=== PATIENT | female | born 1930 | race Hispanic/Latino ===

== ENCOUNTER 2016-12-29 20:26 | Inpatient (IN) | payer OTHER, MEDICARE ==
[2016-12-29 20:27] VITALS: BMI 29.5
[2016-12-29] MEDS ORDERED: Albuterol-Ipratrop 3 mg / 0.5 (3 ml) UD IH STA ×2 (20:40→22:27)
[2016-12-29 21:05] LABS: VENOUS BLOOD GAS BASE EXCESS -1.8 mmol/L (0.0-2.0); VENOUS BLOOD PH 7.38 (7.32-7.43)
[2016-12-29 21:16] LABS: HEMATOCRIT 36.6 % (36.0-48.0); MEAN CELL VOLUME 85.5 fL (80.0-105.0); MEAN CORPUSCULAR HGB CONC 33.9 g/dl (31.0-37.0); MEAN PLATELET VOLUME 9.7 fl (7.0-11.0); RED CELL DISTRIBUTION WIDTH 15.3 % (11.5-14.5); WHITE BLOOD COUNT 10.5 10^3/ul (4.5-11.0)
--- NOTE | 2016-12-29 21:16 | ED PDOC ---
Arrival/HPI - General Chief Complaint: Shortness Of Breath Time Seen by Provider: 12/29/16 20:29 Historian: Patient - History of Present Illness Narrative History of Present Illness (Text): 12/29/16 20:35 Sayda Ramirez is an 86 year old female, whose past medical history includes paroxysmal atrial fibrillation, mitral repair repair, pacemaker, hyperlipidemia , and depression, who presents to the Emergency department complaining of increasing shortness of breath over the past couple of days. Patient reports associated orthonea, occasional non-productive cough, and possible subjective fever. According to son, patient has also been experiencing occasional vague chest discomfort. Patient denies any chills, nausea, vomiting, diarrhea, urinary symptoms, back pain, neck pain, headache, dizziness, or any other complaints. Symptom Onset: Gradual Symptom Course: Unchanged Activities at Onset: Rest, Light Context: Home Past Medical History - Provider Review Nursing Documentation Reviewed: Yes - Infectious Disease Hx of Infectious Diseases: None - Reproductive Menopause: Yes - Cardiac Hx Cardiac Disorders: Yes (valve replacement) Hx Cardiac Arrhythmia: Yes Hx Hypertension: Yes (started new "bp pill" yesterday, name unknown) - Pulmonary Hx Pneumonia: Yes (11/2014) - Neurological Hx Neurological Disorder: No - HEENT Hx HEENT Disorder: No - Renal Hx Renal Disorder: No - Endocrine/Metabolic Hx Endocrine Disorders: No - Hematological/Oncological Other/Comment: blood [facility] 11/2014 - Integumentary Hx Dermatological Disorder: No - Musculoskeletal/Rheumatological Hx Unsteady Gait: Yes - Gastrointestinal Other/Comment: blood in stool - Genitourinary/Gynecological Hx Genitourinary Disorders: No - Psychiatric Hx Psychophysiologic Disorder: Yes Hx Substance Use: No - Surgical History Hx Valve Replacement: Yes Other/Comment: implanted pacemaker; colonoscopy, polypectomy - Anesthesia Hx Anesthesia: Yes Hx Anesthesia Reactions: No Hx Malignant Hyperthermia: No - Suicidal Assessment Feels Threatened In Home Enviroment: No Family/Social History - Physician Review Nursing Documentation Reviewed: Yes Family/Social History: No Known Family HX Smoking Status: Never Smoked Hx Alcohol Use: No Hx Substance Use: No Allergies/Home Meds Allergies/Adverse Reactions: Allergies No Known Allergies Allergy (Verified 12/29/16 20:33) Home Medications: Home Meds Medication Instructions Recorded Confirmed Aspirin [Aspir 81] 81 mg PO DAILY 03/05/13 12/29/16 Atorvastatin Calcium [Lipitor] 10 mg PO DAILY 03/05/13 12/29/16 Sertraline HCl [Sertraline] 100 mg PO DAILY 03/05/13 12/29/16 Cholecalciferol (Vitamin D3) 50,000 unit PO DAILY 01/09/16 12/29/16 [Vitamin D3] Donepezil HCl [Donepezil HCl] 10 mg PO DAILY 01/09/16 12/29/16 amLODIPine [Norvasc] 1 tab PO DAILY 12/29/16 12/29/16 Review of Systems - Physician Review All systems were reviewed & negative as marked: Yes - Review of Systems Constitutional: Normal. absent: Fevers Eyes: Normal ENT: Normal Respiratory: SOB, Cough Cardiovascular: Chest Pain, Orthopnea Gastrointestinal: Normal. absent: Abdominal Pain, Diarrhea, Nausea, Vomiting Genitourinary Female: Normal. absent: Dysuria, Frequency, Hematuria, Urine Output Changes Musculoskeletal: Normal. absent: Back Pain, Neck Pain Skin: Normal. absent: Rash Neurological: Normal. absent: Headache, Dizziness Endocrine: Normal Hemo/Lymphatic: Normal Psychiatric: Normal Physical Exam Vital Signs Reviewed: Yes Vital Signs Temp Pulse Resp BP Pulse Ox 12/30/16 00:00 65 18 122/59 L 93 L 12/29/16 23:18 146/68 12/29/16 22:27 64 18 148/68 93 L 12/29/16 20:30 99.3 F 89 24 90 L 12/29/16 20:27 22 Temperature: Afebrile Blood Pressure: Normal Pulse: Regular Respiratory Rate: Normal Appearance: Positive for: Well-Appearing, Non-Toxic, Comfortable Pain Distress: None Mental Status: Positive for: Alert and Oriented X 3 - Systems Exam Head: Present: Atraumatic, Normocephalic Pupils: Present: PERRL Extroacular Muscles: Present: EOMI Conjunctiva: Present: Normal Mouth: Present: Moist Mucous Membranes Neck: Present: Normal Range of Motion Respiratory/Chest: Present: Wheezes. No: Respiratory Distress, Accessory Muscle Use Cardiovascular: Present: Regular Rate and Rhythm, Normal S1, S2. No: Murmurs Abdomen: Present: Normal Bowel Sounds. No: Tenderness, Distention, Peritoneal Signs Back: Present: Normal Inspection Upper Extremity: Present: Normal Inspection. No: Cyanosis, Edema Lower Extremity: Present: Normal Inspection. No: Edema Neurological: Present: GCS=15, CN II-XII Intact, Speech Normal Skin: Present: Warm, Dry, Normal Color. No: Rashes Psychiatric: Present: Alert, Oriented x 3, Normal Insight, Normal Concentration Medical Decision Making ED Course and Treatment: 12/29/16 20:35 Impression: 86 year old female complaining of shortness of breath, orthopnea, and chest discomfort. Differential Diagnosis included but are not limited to: COPD vs. CHF Plan: -- EKG -- CXR -- Labs, cardiac enzymes, blood cultures -- Duoneb -- Reassess and disposition Prior Visits: Notes and results from previous visits were reviewed. On 01/09/2016, pt was seen in the Emergency department for chest pain, shortness of breath, headache, dizziness, and generalized weakness. Pt was admitted to the hospital for further evaluation. Progress Notes: Reviewed EKG, 100% paced rhythm at 68 bpm. 12/29/16 20:45 Reviewed radiology, CXR shows increased pulmonary vascular markings. 12/29/16 23:[address] Rutherford, who is aware and agrees with plan. Accepts pt in to her service. Pt will be admitted to Telemetry for COPD and CHF. Requests Dr. Berry on consult. - Lab Interpretations Lab Results: 12/29/16 20:40 12/29/16 21:25 Lab Results 12/29/16 21:25: Sodium 135, Chloride 103, Potassium 3.8, Carbon Dioxide 25, Anion Gap 11, BUN 14, Creatinine 0.6, Est GFR ( Amer) > 60, Est GFR (Non- Af Amer) > 60, Random Glucose 124 H, Calcium 9.3, Total Bilirubin 1.0, AST 28, ALT 27, Alkaline Phosphatase 104, Lactate Dehydrogenase 413, Total Creatine Kinase 48, Troponin I < 0.01, NT-Pro-B Natriuret Pep 1260 H, Total Protein 7.9, Albumin 4.3, Globulin 3.6, Albumin/Globulin Ratio 1.2 12/29/16 20:40: pO2 78 H, VBG pH 7.38, VBG pCO2 39.0 L, VBG HCO3 23.1, VBG Total CO2 24.3, VBG O2 Sat (Calc) 96.2 H, VBG Base Excess -1.8 L, VBG Potassium 5.3 H, Sodium 135.0, Chloride 104.0, Glucose 136 H, Lactate 1.4, FiO2 21.0, Venous Blood Potassium 5.3 H 12/29/16 20:40: WBC 10.5 D, RBC 4.28, Hgb 12.4, Hct 36.6, MCV 85.5, MCH 29.0, MCHC 33.9, RDW 15.3 H, Plt Count 254, MPV 9.7 12/29/16 20:40: PT 10.7, INR 0.99, APTT 28.2 I have reviewed the lab results: Yes - RAD Interpretation Radiology Orders: 12/29/16 20:37 CHEST PORTABLE [RAD] Stat Sales And Leasing Agent: ED Physician - EKG Interpretation EKG Interpretation (Text): EKG: Ordered, reviewed, and independently interpreted the EKG. Rate : 68 BPM Rhythm : 100% paced rhythm Comparison : No acute change from EKG on 01/09/2016. Interpreted by ED Physician: Yes Type: 12 lead EKG - Medication Orders Current Medication Orders: Amlodipine Besylate (Norvasc) 5 mg PO DAILY BISI Aspirin (Ecotrin) 81 mg PO DAILY BISI Atorvastatin Calcium (Lipitor) 10 mg PO DAILY BISI Donepezil HCl (Aricept) 10 mg PO HS BISI Furosemide (Lasix) 40 mg IVP DAILY BISI Levalbuterol HCl (Xopenex) 1.25 mg IH [id number] BISI Meclizine HCl (Antivert) 25 mg PO TID PRN PRN Reason: Dizziness Sertraline HCl (Zoloft) 100 mg PO DAILY BISI Discontinued Medications Albuterol/Ipratropium (Duoneb 3 Mg/0.5 Mg (3 Ml) Ud) 3 ml IH ONCE STA Stop: 12/29/16 20:41 Last Admin: 12/29/16 20:51 Dose: 3 ml Albuterol/Ipratropium (Duoneb 3 Mg/0.5 Mg (3 Ml) Ud) 3 ml IH ONCE STA Stop: 12/29/16 22:28 Last Admin: 12/29/16 23:19 Dose: 3 ml Furosemide (Lasix) 40 mg IVP ONCE ONE Stop: 12/29/16 22:31 Last Admin: 12/29/16 23:18 Dose: 40 mg Ceftriaxone Sodium (Rocephin 1 Gram Ivpb) 1 gm in 100 mls @ 200 mls/hr IV ONCE STA PRN Reason: Protocol Stop: 12/29/16 22:58 Last Admin: 12/29/16 23:17 Dose: 200 mls/hr Azithromycin (Zithromax 500mg In Ns) 500 mg in 250 mls @ 166.667 mls/hr IV STAT STA PRN Reason: Protocol Stop: 12/29/16 23:59 Last Admin: 12/30/16 00:43 Dose: 166.667 mls/hr Methylprednisolone (Solu-Medrol) 125 mg IVP ONCE ONE Stop: 12/29/16 22:29 Last Admin: 12/29/16 23:18 Dose: 125 mg - Jaydonibe Statement The provider has reviewed the documentation as recorded by the Ha Peña Provider Attestation: All medical record entries made by the Ha were at my direction and personally dictated by me. I have reviewed the chart and agree that the record accurately reflects my personal performance of the history, physical exam, medical decision making, and the department course for this patient. I have also personally directed, reviewed, and agree with the discharge instructions and disposition. Disposition/Present on Arrival - Present on Arrival Any Indicators Present on Arrival: No History of DVT/PE: No History of Uncontrolled Diabetes: No Urinary Catheter: No History of Decub. Ulcer: No History Surgical Site Infection Following: None - Disposition Have Diagnosis and Disposition been Completed?: Yes Diagnosis: CHF (congestive heart failure), COPD (chronic obstructive pulmonary disease) Disposition: HOSPITALIZED Disposition Time: 23:55 Condition: STABLE
[2016-12-29 21:33] LABS: INR 0.99 (0.93-1.08); PARTIAL THROMBOPLASTIN TIME 28.2 Seconds (23.7-30.8)
[2016-12-29 21:46] LABS: ALB/GLOB RATIO 1.2 (1.1-1.8); ALKALINE PHOSPHATASE 104 U/L (38-133); ALT/SGPT 27 U/L (7-56); AST/SGOT 28 U/L (15-39); BLOOD UREA NITROGEN 14 mg/dL (7-21); CALCIUM 9.3 mg/dL (8.4-10.5); CARBON DIOXIDE 25 mmol/L (21-33); GFR AFRICAN-AMERICAN > 60; GLUCOSE,RANDOM 124 mg/dL (70-110); POTASSIUM 3.8 mmol/L (3.6-5.0); SODIUM 135 mmol/L (132-148); TOTAL PROTEIN 7.9 g/dL (5.8-8.3)
[2016-12-29 21:55] LABS: CHLORIDE 103 mmol/L (98-107)
[2016-12-29 22:04] LABS: TROPONIN I < 0.01 ng/mL
[2016-12-29] MEDS ORDERED: cefTRIAXone 1 gm 1 GM/100 ML BAG IV STA (22:29)
[2016-12-29] MEDS ORDERED: Azithromycin 500MG/NS 250ml 500 MG/250 ML BAG IV STA (22:30)
[2016-12-30] MEDS: Levalbuterol 1.25 MG/3 ML Inhal Soln UD IH SCH ×3 (07:50→20:14)
[2016-12-30 08:01] LABS: ALB/GLOB RATIO 1.2 (1.1-1.8); ALKALINE PHOSPHATASE 88 U/L (38-133); ALT/SGPT 30 U/L (7-56); AST/SGOT 24 U/L (15-39); BILIRUBIN,TOTAL 0.9 mg/dL (0.2-1.3); BLOOD UREA NITROGEN 15 mg/dL (7-21); CALCIUM 9.1 mg/dL (8.4-10.5); CARBON DIOXIDE 25 mmol/L (21-33); CHLORIDE 106 mmol/L (98-107); CHOLESTEROL 158 mg/dL (130-200); GFR AFRICAN-AMERICAN > 60; GLUCOSE,RANDOM 238 mg/dL (70-110); POTASSIUM 3.8 mmol/L (3.6-5.0); SODIUM 138 mmol/L (132-148); TOTAL PROTEIN 7.6 g/dL (5.8-8.3)
[2016-12-30 08:08] LABS: FREE T4 1.06 ng/dL (0.78-2.19)
[2016-12-30 08:13] LABS: TROPONIN I < 0.01 ng/mL
[2016-12-30 08:22] LABS: THYROID STIMULATING HORMONE 0.75 mIU/mL (0.46-4.68)
--- NOTE | 2016-12-30 09:02 | RAD ---
HISTORY: Shortness of breath COMPARISON: 01/09/2016 FINDINGS: LUNGS: The lungs are clear. PLEURA: No significant pleural effusion identified, no pneumothorax apparent. CARDIOVASCULAR: There is mild cardiomegaly. OSSEOUS STRUCTURES: No significant abnormalities. VISUALIZED UPPER ABDOMEN: Normal. OTHER FINDINGS: None. IMPRESSION: No active pulmonary disease.
[2016-12-30] MEDS: Potassium Chloride 20 mEq ER Tab PO SCH (11:54)
--- NOTE | 2016-12-30 13:48 | CON ---
DATE: 12/30/2016 REASON FOR CONSULTATION AND FOLLOWUP: Shortness of breath, low-grade fever, history of mitral valve repair, history of permanent pacemaker. BRIEF CLINICAL HISTORY: This is an 86-year-old female with a past medical history significant for pa roxysmal atrial fibrillation, mitral valve repair, pacemaker, hypertension, hyperlipidemia. Came in the Emergency Room with complaining of feeling cough, dyspnea on exertion, shortness of breath on exe rtion and this morning the patient was feeling weak. In ER, patient was found to be temperature 99 a nd elevated BNP, so admitted. Admitting WBC is 10.5. The patient had a blood culture and started on IV Lasix. The patient denies any chest pain, shortness of breath, any palpitation. Daughter is at the bedside. Daughter is at the bedside. PAST HISTORY: Significant for sick sinus syndrome, as well as permanent pacemaker 03/08/2013; histor y of mitral valve repair. Status post cardiac catheterization, normal coronaries, mitral stenosis, m itral regurgitation, status post mitral valve repair. History of hypothyroidism, history of hyperten vini, hyperlipidemia. SOCIAL HISTORY: Denies any smoking. Denies any history of alcohol abuse. PREVIOUS CARDIAC WORKUP: As per patient, history of mitral valve replacement at [facility] . History of permanent pacemaker on 03/07/2013. Hypertension, hyperlipidemia. SOCIAL HISTORY: Denies any smoking. Denies any history of alcohol abuse. History of single chamber VVI pacemaker, was placed on 03/08/2013. History of paroxysmal atrial fibri llation, now patient is in normal sinus. REVIEW OF SYSTEMS: As per HPI. PHYSICAL EXAMINATION: As follows: VITAL SIGNS: Temperature afebrile, heart rate 64, blood pressure 104/52. HEENT: PERRLA, intact. NECK: Supple. No carotid bruits. No thyromegaly. CHEST: Clear to auscultation. HEART: S1, S2 regular. ABDOMEN: Soft. EXTREMITIES: Clubbing and cyanosis negative. BLOOD WORKUP: As follows: WBC ____, hemoglobin ____, hematocrit 36.6, platelet count 254. Chemistr y shows sodium 130, potassium ____, chloride 106, carbon dioxide 25, anion gap of 15, BUN 11, creatin ine 0.6. Troponin 0.01. Orthostatic hypotension was checked and found to be 103 on lying, sitting 1 15/85, standing 107/40. EKG shows V-paced rhythm, underlying normal sinus. Chest x-ray normal, does not show any acute CHF. IMPRESSION: Low grade fever, rule out congestive heart failure, rule out early pneumonia, history of permanent pacemaker, sick sinus syndrome, history of mitral valve replacement. RECOMMENDATION: We will continue gentle diuretics. Monitor electrolytes. WE will get the echo to a ssess LV function, possible ____ early bronchitis. Gentle diuretics. We will follow with you. Hist ory of paroxysmal, now patient is normal sinus. History of permanent pacemaker. We will look at the valve gradient by echo. Last time, patient had moderate mitral stenosis post-valve repair, also loo k at the aortic valve. We will follow with you. Thank you, Dr. Rutherford, for providing us the opportunity in taking care of the patient. Raul Berry MD cc: [id number] TT: 12/30/2016 13:47:44 Confirmation # [id number] Dictation # [id number] sn
--- NOTE | 2016-12-30 13:49 | CARD ---
APPROVED REPORT EKG Measurement Heart [id number] <Conclusion> Electronic ventricular pacemaker
--- NOTE | 2016-12-30 14:24 | CT ---
PROCEDURE: CT Chest without contrast HISTORY: sob COMPARISON: None. TECHNIQUE: Contiguous axial images were obtained through the chest without intravenous contrast enhancement. Sagittal and coronal reconstructions were performed. Radiation dose (DLP): 482 mGy-cm. This CT exam was performed using one or more of the following dose reduction techniques: Automated exposure control, adjustment of the mA and/or kV according to patient size, and/or use of iterative reconstruction technique. FINDINGS: LUNGS: Ground-glass interstitial infiltrates are seen in both upper lobes. There is a small area of focal consolidation in the anterior right upper lobe image 64 series 4. There is a small 5 mm nodule in the left upper lobe seen on image 38. A focal nodular infiltrate is seen in the right upper lobe posteriorly on image 29. MEDIASTINUM: Unremarkable thoracic aorta. No aneurysm. Normal sized heart. Main pulmonary artery unremarkable. No vascular congestion. No lymphadenopathy. PLEURA: No pleural fluid. No pneumothorax. BONES: Anterior osteophytes. No compression fractures UPPER ABDOMEN: Grossly unremarkable. OTHER FINDINGS: None. IMPRESSION: Bilateral interstitial infiltrates in the upper lobes with smaller areas of focal consolidation.
--- NOTE | 2016-12-30 14:34 | HP ---
The patient is an 86-year-old, known to me from office practice. According to son, she has not been feeling well for the last 2-3 days. She was increasingly shortness of breath. Denies any fever or c hills. No history of nausea. No chest pain. Did have some weakness and so because of increasing sh ortness of breath and given significant past extensive coronary artery and arrhythmia history, the so n decided to bring her to Emergency Room for further evaluation. Complained of scanty cough here and there, but mostly dry. She did have some chills, but there was no documented fever. PAST MEDICAL HISTORY: Significant for: 1. Mitral valve repair. 2. Status post pacemaker placement. 3. Hyperlipidemia. 4. History of depression. ALLERGIES: She is not allergic to any medications. MEDICATIONS AT HOME: She is on Aricept 10 mg daily, amlodipine 5 mg daily, sertraline 100 mg daily, atorvastatin 10 mg daily, aspirin 81 daily, Antivert 25 t.i.d. p.r.n. SOCIAL HISTORY: She is single, lives with her children, son who is very caring. No history of smoki ng or alcohol use. PHYSICAL EXAMINATION: GENERAL: The patient is awake and alert, able to communicate. VITAL SIGNS: She is afebrile, pulse 64, respirations 20, blood pressure 104/ . LUNGS: Bilateral fair airflow. HEART: S1, S2 audible. ABDOMEN: Soft, nontender, no rebound, no guarding. NEUROLOGIC: She is awake and alert, communicative. LABORATORY EXAMINATION: WBCs 10.5, hemoglobin 12.4, hematocrit 36, platelets of 254. PT 10.7, INR 0 .99. Chemistry: Sodium 138, potassium 3.8, chloride 106, CO2 25, BUN 15, creatinine 0.6, blood suga r of 238. LFTs are within normal limits. BNP 1260. Two sets of cardiac enzymes are negative. X-ray chest: No active pulmonary disease. ASSESSMENT: 1. Congestive heart failure with high BNP. 2. History of mitral valve replacement. 3. Hypertension. 4. Mild dementia. 5. Obesity. PLAN: Echocardiogram has been ordered. We will continue her on nebulizer treatment. She is on IV L asix. Out of bed to chair. We will monitor her electrolytes in a.m. If she remains stable, early d ischarge in a.m. Chang Rutherford MD cc: [phone] TT: 12/30/2016 14:33:29 en
[2016-12-31] MEDS: Levalbuterol 1.25 MG/3 ML Inhal Soln UD IH SCH ×4 (01:26→19:33)
[2016-12-31 07:10] LABS: ADD MANUAL DIFF? NO
[2016-12-31 07:15] LABS: BASO # 0.01 K/mm3 (0.0-2.0); BASO % 0.1 % (0.0-3.0); GRAN # 11.48 (1.4-6.5); GRAN % 84.3 % (50.0-68.0); HEMATOCRIT 36.4 % (36.0-48.0); LYMPH # 1.3 (1.2-3.4); LYMPH % 9.5 % (22.0-35.0); MEAN CELL VOLUME 87.9 fL (80.0-105.0); MEAN CORPUSCULAR HEMOGLOBIN 28.5 pg (25.0-35.0); MEAN CORPUSCULAR HGB CONC 32.4 g/dl (31.0-37.0); MEAN PLATELET VOLUME 9.5 fl (7.0-11.0); MONO # 0.8 (0.1-0.6); MONO % 6.1 % (1.0-6.0); PLATELET COUNT 254 10^3/uL (120.0-450.0); RED CELL DISTRIBUTION WIDTH 15.3 % (11.5-14.5); WHITE BLOOD COUNT 13.6 10^3/ul (4.5-11.0)
[2016-12-31 07:40] LABS: ALB/GLOB RATIO 1.1 (1.1-1.8); ALKALINE PHOSPHATASE 73 U/L (38-133); ALT/SGPT 28 U/L (7-56); AST/SGOT 23 U/L (15-39); BILIRUBIN,TOTAL 0.9 mg/dL (0.2-1.3); BLOOD UREA NITROGEN 22 mg/dL (7-21); CALCIUM 9.4 mg/dL (8.4-10.5); CARBON DIOXIDE 27 mmol/L (21-33); CHLORIDE 107 mmol/L (98-107); GFR AFRICAN-AMERICAN > 60; GLUCOSE,RANDOM 132 mg/dL (70-110); MAGNESIUM 2.4 mg/dL (1.7-2.2); PHOSPHOROUS 3.4 mg/dL (2.5-4.5); POTASSIUM 3.9 mmol/L (3.6-5.0); SODIUM 143 mmol/L (132-148); TOTAL PROTEIN 7.2 g/dL (5.8-8.3)
[2016-12-31] MEDS: Potassium Chloride 20 mEq ER Tab PO SCH (09:05)
--- NOTE | 2016-12-31 10:43 | PN ---
DATE: 12/31/2016 REASON FOR CONSULTATION AND FOLLOWUP: Shortness of breath, low-grade fever, history of mitral valve repair, history of permanent pacemaker. BRIEF CLINICAL HISTORY: An 86-year-old female with a past medical history significant for paroxysmal atrial fibrillation, mitral valve repair, status post permanent pacemaker, history of mitral valve r epair, came to the Emergency Room not feeling good, feeling weak, low grade fever. The patient was s tarted on IV Lasix, on antibiotic, possibly acute bronchitis. The patient's repeat echo this morning reviewed at the bedside, preserved left ventricular function, valve area of 1.2 cm, status post mitr al valve repair, mild to moderate tricuspid regurgitation. No vegetation noted. PHYSICAL EXAMINATION: VITAL SIGNS: Temperature afebrile, heart rate 64, blood pressure 147/73. HEENT: PERRLA. Extraocular muscles intact. NECK: Supple. No carotid bruits. No thyromegaly. CHEST: Clear to auscultation. HEART: S1, S2 regular. ABDOMEN: Soft. EXTREMITIES: Clubbing and cyanosis negative. LABORATORY DATA: Blood workup as follows: WBC 13.6, hemoglobin 11.8, hematocrit 36.4, platelet coun t 254. Chemistry shows sodium 143, potassium 3.9, chloride 107, carbon dioxide 27, anion gap of 13, BUN 28, creatinine 0.6. IMPRESSION: Acute bronchitis, upper respiratory tract infection, decompensated congestive heart fail ure, status post mitral valve repair, valve area repeat echo today 1.2 cm2, preserved left ventricula r function, ejection fraction 65%, elevated BNP secondary to diastolic dysfunction, congestive heart failure secondary to diastolic dysfunction, acute bronchitis, status post permanent pacemaker, paroxy smal atrial fibrillation, now patient is in normal sinus with V-paced rhythm. RECOMMENDATION: Continue antibiotic. Continue aspirin. Continue Lasix. Continue atorvastatin. Po ssible discharge. Will discontinue telemetry. Discussed with the family, discussed with the manolo r, son and landlord named Jones, on the telephone. We will follow with you. We will follow up on dis charge in the office. Thank you, Dr. Rutherford, for providing the opportunity in taking care of this patient. We will follow with you. Raul Berry MD cc: [id number] TT: 12/31/2016 10:42:42 Confirmation # [id number] Dictation # [id number] rn
[2016-12-31] MEDS ORDERED: cefTRIAXone 1 gm 100 ML IVPB SCH (11:45)
[2016-12-31] MEDS ORDERED: cefTRIAXone 1 gm 1 GM/100 ML BAG IVPB ONE (12:00)
[2016-12-31] MEDS: Azithromycin 500MG/NS 250ml 500 MG/250 ML BAG IVPB SCH (12:30)
[2016-12-31 12:43] LABS: HEMATOCRIT 37.6 % (36.0-48.0); MEAN CELL VOLUME 87.9 fL (80.0-105.0); MEAN PLATELET VOLUME 9.2 fl (7.0-11.0); RED CELL DISTRIBUTION WIDTH 15.4 % (11.5-14.5); WHITE BLOOD COUNT 13.6 10^3/ul (4.5-11.0)
--- NOTE | 2016-12-31 13:45 | PN ---
DATE: 12/31/2016 The patient is an 86-year-old, seen and examined. Still has shortness of breath, but better than betorri ore. Gets short of breath on walking, does desaturate. At rest, pulse ox is 96% and ambulating, she is 92%. The patient had pneumonia when she was in [place]. She was on vent, so I would rather give her IV antibiotic for another 48 hours prior to discharge, so she is hemodynamically stable. I will discontinue telemetry and continue her on IV antibiotic. PHYSICAL EXAMINATION: GENERAL: Today, she is awake and alert. Complained of mild shortness of breath. VITAL SIGNS: She is afebrile, pulse 68, respirations 18, blood pressure 103/66. LUNGS: Bilateral fair airflow, few soft crackles in posterior upper and middle lung region. HEART: S1, S2 audible. ABDOMEN: Soft, nontender, no rebound, no guarding. NEUROLOGIC: She is awake and alert, able to communicate and ambulatory. LABORATORY EXAMINATION: WBC 13.6, hemoglobin 12.4, hematocrit 37.6, platelets 266. Chemistry: Sodi um 143, potassium 3.9, chloride 107, CO2 27, BUN 22, creatinine 0.6, blood sugar 132. Magnesium 2.4. Blood cultures are negative. She had CT scan of the chest done that shows bilateral interstitial infiltrate in both upper lung reg ions. ASSESSMENT: 1. Bilateral interstitial infiltrates, community-acquired pneumonia. 2. Asthmatic bronchitis. 3. Congestive heart failure, improved, acute on chronic systolic. 4. Status post mitral valve replacement. 5. History of depression. 6. Status post pacemaker placement. 7. Paroxysmal atrial fibrillation, but in sinus rhythm lately. PLAN: I will start her on Zithromax, Rocephin stat. I will order for procalcitonin for tomorrow and order for CBC. Start her on nebulizer treatment. Encouraged ambulation, out of bed to chair. Cont inue her usual cardiac medications. Follow up her CMP in a.m. Discussed with patient's daughter, makeda o is by the bedside. They agree for the plan. I will discontinue telemetry also. Chang Rutherford MD cc: [id number] TT: 12/31/2016 13:44:55 Confirmation # [id number] Dictation # [id number] en
[2016-12-31] MEDS ORDERED: Simethicone 80 mg Chewtab PO PRN (20:30)
[2016-12-31] MEDS: Pantoprazole 40 mg EC Tab PO SCH (20:50)
[2017-01-01] MEDS: Levalbuterol 1.25 MG/3 ML Inhal Soln UD IH SCH ×4 (01:20→21:12)
[2017-01-01] MEDS: Pantoprazole 40 mg EC Tab PO SCH (06:22)
[2017-01-01] MEDS: Potassium Chloride 20 mEq ER Tab PO SCH (08:47)
[2017-01-01 09:10] LABS: ALB/GLOB RATIO 1.1 (1.1-1.8); ALKALINE PHOSPHATASE 84 U/L (38-133); ALT/SGPT 30 U/L (7-56); AST/SGOT 35 U/L (15-39); BILIRUBIN,TOTAL 0.9 mg/dL (0.2-1.3); BLOOD UREA NITROGEN 22 mg/dL (7-21); CALCIUM 9.2 mg/dL (8.4-10.5); CARBON DIOXIDE 26 mmol/L (21-33); CHLORIDE 106 mmol/L (98-107); GFR AFRICAN-AMERICAN > 60; GLUCOSE,RANDOM 112 mg/dL (70-110); POTASSIUM 3.8 mmol/L (3.6-5.0); SODIUM 141 mmol/L (132-148); TOTAL PROTEIN 7.4 g/dL (5.8-8.3)
[2017-01-01] MEDS: Azithromycin 500MG/NS 250ml 500 MG/250 ML BAG IVPB SCH (09:38)
[2017-01-01] MEDS: cefTRIAXone 1 gm 1 GM/100 ML BAG IVPB SCH (09:38)
[2017-01-01 11:41] LABS: HEMATOCRIT 39.1 % (36.0-48.0); MEAN CELL VOLUME 88.1 fL (80.0-105.0); MEAN CORPUSCULAR HEMOGLOBIN 29.1 pg (25.0-35.0); RED CELL DISTRIBUTION WIDTH 15.3 % (11.5-14.5); WHITE BLOOD COUNT 10.7 10^3/ul (4.5-11.0)
--- NOTE | 2017-01-01 12:57 | PN ---
DATE: 01/01/2017 SUBJECTIVE: The patient is an 86-year-old, seen and examined lying in bed. Seems to be comfortable. Has scanty cough here and there. Eating and tolerating. Daughter by the bedside. PHYSICAL EXAMINATION: VITAL SIGNS: She is afebrile, pulse 64, respirations 20, blood pressure 144/75. LUNGS: Bilateral fair airflow okay. No rhonchi. HEART: S1, S2 audible. ABDOMEN: Soft, nontender, no rebound, no guarding. NEUROLOGIC: She is awake and alert, communicative and moves all extremities. LABORATORY EXAMINATION: WBC is 10.7, hemoglobin 12, hematocrit 39, platelet of 274. Chemistry: Sod ium 141, potassium 3.8, chloride 106, CO2 of 26, BUN 22, creatinine 0.6, blood sugar 112. ASSESSMENT: 1. Bilateral upper lobe interstitial infiltrate. 2. Diastolic dysfunction and congestive heart failure, acute on chronic, diastolic. 3. History of mitral valve replacement. 4. History of anxiety disorder. 5. Hyperlipidemia. 6. Chronic vertigo. PLAN: Will continue patient on current antibiotic. Will continue her on nebulizer treatment. She i s on aspirin 81 daily. Continue her on Lasix and potassium. She is on statins. She is receiving Ro cephin and Zithromax. Will reevaluate patient in the a.m. If she continues to improve, will discharg e probably either tomorrow or day after. Chang Rutherford MD cc: [id number] TT: 01/01/2017 12:55:58 Confirmation # [id number] Dictation # [id number] kelsie
--- NOTE | 2017-01-01 15:15 | PN ---
DATE: 01/01/2017 REASON FOR CONSULTATION AND FOLLOWUP: Shortness of breath, low-grade fever, mitral valve repair, his tory of permanent pacemaker, admitted with shortness of breath, possibly secondary to pneumonia. BRIEF CLINICAL HISTORY: The patient denies any chest pain, shortness of breath, any palpitations, fe els better. Son and daughter are at the bedside. PHYSICAL EXAMINATION: VITAL SIGNS: Temperature afebrile, heart rate 64, blood pressure 144/75. HEENT: PERRLA. Extraocular muscles intact. NECK: Supple. No carotid bruit. No thyromegaly. CHEST: Clear to auscultation. HEART: S1, S2 regular. ABDOMEN: Soft. EXTREMITIES: Clubbing and cyanosis negative. BLOOD WORKUP: As follows: WBC 10.3, hemoglobin 12.9, hematocrit 39.1, platelet count 274. Chemistr y shows sodium 141, potassium , chloride 106, carbon dioxide 26, anion gap of 13, BUN 22, creati nine 0.6. Troponin is 0.01 negative. Echo done that shows preserved left ventricular function, ejec tion fraction 60%-65%, status post MVR repair, mild to moderate mitral stenosis, status post MV repai r. IMPRESSION: Pneumonia, permanent pacemaker, diabetes, status post MV repair, paroxysmal atrial fibri llation, status post permanent pacemaker, sick sinus syndrome. RECOMMENDATION: Continue broad spectrum antibiotic. Discussed with the family's concern about the d ischarge. Told that patient needs IV antibiotic. The patient is improving. Probably once the sympt oms improve, patient will be discharged home. Discussed with the patient's family friend, Jones, and also the patient's son, but also explained the patient's condition. The patient is currently on IV a ntibiotics, Rocephin and Zithromax. We will follow with you. Thank you, Dr. Rutherford, for providing the opportunity in taking care of the patient. Raul Berry MD cc:Chang Rutherford MD 305 TT: 01/01/2017 15:14:25 Confirmation # [id number] Dictation # [id number] rn
[2017-01-02] MEDS: Levalbuterol 1.25 MG/3 ML Inhal Soln UD IH SCH ×3 (02:50→13:43)
[2017-01-02] MEDS: Pantoprazole 40 mg EC Tab PO SCH (06:08)
[2017-01-02] MEDS: Potassium Chloride 20 mEq ER Tab PO SCH (08:30)
[2017-01-02 08:43] VITALS: O2SAT 96
[2017-01-02] MEDS: Azithromycin 500MG/NS 250ml 500 MG/250 ML BAG IVPB SCH (10:23)
[2017-01-02] MEDS: cefTRIAXone 1 gm 1 GM/100 ML BAG IVPB SCH (10:23)
--- NOTE | 2017-01-02 12:17 | PN ---
DATE: 01/02/2017 SUBJECTIVE: The patient is 86 years old, seen and examined, lying in bed. Scanty cough, complained of generalized weakness. Eating and tolerating. PHYSICAL EXAMINATION: VITAL SIGNS: She is afebrile, pulse 6____, respirations 20, blood pressure 122/65. LUNGS: Bilateral few expiratory rhonchi. HEART: S1, S2 audible. ABDOMEN: Soft, nontender. No rebound, no guarding. NEUROLOGIC: The patient is awake and alert, able to communicate. Moves all extremities. ASSESSMENT: 1. Bilateral interstitial infiltrate that is community-acquired pneumonia. 2. Diastolic dysfunction. 3. Status post pacemaker placement secondary to sick sinus syndrome. 4. Mitral valve repair. 5. History of depression. PLAN: We will continue the patient's current antibiotic. We will continue her nebulizer treatment. Currently, she is on Rocephin and Zithromax. We will continue. We will monitor her respiratory sta tus. Encourage ambulation. Ordered for MEJIA stocking. If she remains stable, discharge plan for the morning. Chang Rutherford MD cc: [phone] TT: 01/02/2017 12:17:01 Confirmation # [id number] Dictation # [id number] patrick
[2017-01-02] MEDS ORDERED: Potassium Chloride 20 mEq ER Tab PO ONE (15:13)
--- NOTE | 2017-01-02 15:50 | PN ---
DATE: 01/02/2017 REASON FOR CONSULTATION AND FOLLOWUP: Cardiac followup, history of MV repair, history of MV repair, history of pacemaker, admitted with community-acquired pneumonia. The patient denies any chest pain, shortness of breath, any palpitation. PHYSICAL EXAMINATION: As follows: VITAL SIGNS: Temperature afebrile, heart rate 60, blood pressure 122/65. HEENT: PERRLA. Extraocular muscles intact. NECK: Supple. No carotid bruit or thyromegaly. CHEST: Clear to auscultation. HEART: S1, S2 regular. ABDOMEN: Soft. EXTREMITIES: Clubbing and cyanosis negative. BLOOD WORKUP: As follows: WBC 10.7, hemoglobin 12.9, hematocrit 39.1, platelet count 274. Chemistr y shows sodium 141, potassium ____, chloride 106, carbon dioxide 26, anion gap of 13, BUN 22, creatin ine 0.6. IMPRESSION: Pneumonia, community-acquired pneumonia. Status post mitral valve repair. Echo was don e -- preserved left ventricular function, aortic stenosis, mitral stenosis, valve area of 1.2, status post repair. Status post pacemaker, diastolic dysfunction. Diabetes. Cardiovascular status is sta ble. We will repeat chest x-ray, PA and lateral, this afternoon. Continue antibiotic. We will foll ow with you. Discussed with the patient's family. We discussed with the patient's son and daughter. We will follow with you. Raul Berry MD cc: [phone] TT: 01/02/2017 15:49:47 Confirmation # [id number] Dictation # [id number] sn
[2017-01-03] MEDS: Levalbuterol 1.25 MG/3 ML Inhal Soln UD IH SCH ×3 (02:00→13:25)
[2017-01-03 08:05] VITALS: BP 128/71; PULSE 68; RESP 20; TEMP 98.8
[2017-01-03] MEDS: Potassium Chloride 20 mEq ER Tab PO SCH (08:29)
--- NOTE | 2017-01-03 10:02 | RAD ---
HISTORY: F/U pneumonia and compare COMPARISON: 12/29/2016 TECHNIQUE: Chest PA and lateral FINDINGS: LUNGS: No active pulmonary disease. PLEURA: No significant pleural effusion identified. No pneumothorax apparent. CARDIOVASCULAR: Mild cardiomegaly. Single lead pacemaker OSSEOUS STRUCTURES: No significant abnormalities. VISUALIZED UPPER ABDOMEN: Normal. OTHER FINDINGS: None. IMPRESSION: No active disease.
[2017-01-03] MEDS: cefTRIAXone 1 gm 1 GM/100 ML BAG IVPB SCH (10:55)
[2017-01-03] MEDS: Azithromycin 500MG/NS 250ml 500 MG/250 ML BAG IVPB SCH (13:06)
--- NOTE | 2017-01-03 20:19 | PN ---
DATE: 01/03/2017 LOCATION: The patient is in room 578, bed 2. REASON FOR CONSULTATION AND FOLLOWUP: Mitral valve repair, history pacemaker, pneumonia. HISTORY OF PRESENT ILLNESS: The patient was admitted to the medical floor with community-acquired pn eumonia. The patient is feeling better now. Denies chest pain, shortness of breath, palpitation. PHYSICAL EXAMINATION: VITAL SIGNS: Blood pressure 128/71, respirations 20, pulse 68, temperature 98.8. HEAD: Normocephalic. EYES: Pupils normal. Conjunctivae normal. NOSE AND THROAT: Normal. NECK: JVP low. Carotid equal. THORAX: AP diameter normal. LUNGS: Clear. CARDIOVASCULAR: S1, S2. ABDOMEN: Soft, nontender, no organomegaly. Bowel sounds normal. EXTREMITIES: No clubbing, no cyanosis. LABORATORY DATA: WBC 10.7, hemoglobin 12.9, hematocrit 39.1, platelet 274. Sodium 141, potassium 3. 8, BUN 22, creatinine 0.6, random sugar 112. AST and ALT normal. Protein and albumin normal. DIAGNOSES: Community-acquired pneumonia, status post mitral valve repair, echo showed preserved left ventricular function, aortic stenosis, mitral stenosis, valve area 1.2 cm2, status post repair, stat us post pacemaker insertion, diastolic dysfunction, diabetes. PLAN: The patient had a repeat chest x-ray yesterday, which is clear. Will continue present therapy . The patient clinically cardiac status is stable. Aspirin 81 mg daily, potassium 20 mEq daily, fur osemide 40 mg IV daily, will change it to p.o.; atorvastatin 10 mg daily, Rocephin 1 gram IV daily, e rythromycin 500 mg IV daily, Zoloft 100 daily. Will discontinue IV Lasix and will put Lasix 40 p.o. daily and will follow with you. Raul Alvares MD cc: [phone] TT: 01/03/2017 20:18:17 Confirmation # [id number] Dictation # [id number] dn
--- NOTE | 2017-01-03 21:57 | DS ---
HISTORY OF PRESENT ILLNESS: The patient is an 86-year-old who came to Emergency Room because of incr easing cough, congestion, and shortness of breath. She was placed initially in observation, but, she was diuresed, she had CT scan of the chest done that showed bilateral interstitial infiltrate, has b een on IV antibiotic and nebulizers, doing well, anxious to go home. PHYSICAL EXAMINATION: VITAL SIGNS: She is afebrile, pulse , respirations 20, blood pressure 128/71. LUNGS: Bilateral fair airflow, no rhonchi or crackle. HEART: S1, S2 audible. ABDOMEN: Soft, nontender. No rebound, no guarding. NEUROLOGIC: The patient is awake and alert, able to communicate. LABORATORY EXAM: She had x-ray chest repeated that showed no active disease. ASSESSMENT AND PLAN: 1. Exertional dyspnea and bilateral interstitial infiltrate. 2. Status post mitral valve replacement. 3. History of depression. 4. Asthmatic bronchitis. 5. Status post pacemaker placement secondary to sick sinus syndrome. 6. Aortic stenosis. 7. Mitral stenosis. PLAN: The patient is anxious to go home. Although, she is clinically stable, discharge her on Zithr omax 250 daily for 7 days and Ceftin 500 twice a day. She is given a prescription for nebulizer. Sh luz is being discharged and will be followed up in office in a week and will reevaluate the patient as outpatient. Chang Rutherford MD cc: [phone] TT: 01/03/2017 21:56:58 ak
--- NOTE | 2017-01-07 11:39 | CARD ---
APPROVED REPORT EXAM: Two-dimensional and M-mode echocardiogram with Doppler and color Doppler. INDICATION Dyspnea s/p mv repair 2D DIMENSIONS Left Atrium (2D)4.3 (1.6-4.0cm)IVSd1.2 (0.7-1.1cm) LVDd3.9 (3.9-5.9cm)PWd1.1 (0.7-1.1cm) LVDs2.5 (2.5-4.0cm)FS (%) 35.0 % LVEF (%)65.0 (>50%) M-Mode DIMENSIONS Aortic Root3.00 (2.2-3.7cm)Aortic Cusp Exc.1.80 (1.5-2.0cm) Aortic Valve AoV Peak Wvrvmxxk463.0cm/Gee Peak GR.8mmHg Mitral Valve MV E Peak Gr.24mmHgMV E Mean Gr.9mmHgMV [id number] E/A ratio0.0MVA (PHT)1.16cm2 TDI E/Lateral E'0.0E/Medial E'0.0 Tricuspid Valve TR Peak [id number]/sRAP [id number] Peak Gr.30mmHg [id number] LEFT VENTRICLE The left ventricle is normal size. There is mild concentric left ventricular hypertrophy. The left ventricular function is normal.EF-65% There is normal LV segmental wall motion. The left ventricular diastolic function is normal. No left ventricle thrombus noted on this study. There is no ventricular septal defect visualized. There is no left ventricular aneurysm. There is no mass noted in the left ventricle. RIGHT VENTRICLE The right ventricle is normal size. There is normal right ventricular wall thickness. The right ventricular systolic function is normal. There is a pacemaker lead in the right ventricle. ATRIA The left atrium is mildly dilated. The right atrium is borderline dilated. There is a catheter/pacemaker lead seen in the right atrium. The interatrial septum is intact with no evidence for an atrial septal defect. AORTIC VALVE The aortic valve is thickened but opens well. There is trace aortic regurgitation. There is no aortic valvular stenosis. There is no aortic valvular vegetation. MITRAL VALVE S/p MV Repair, Trace MR. MVA 1.2 cm2 TRICUSPID VALVE The tricuspid valve leaflets are thickened , but open well. There is mild to moderate tricuspid regurgitation.RVSP-40 cmmof Hg. There is no tricuspid valve stenosis. There is no tricuspid valve prolapse or vegetation. PULMONIC VALVE The pulmonic valve is borderline thickened. There is trace pulmonic valvular regurgitation. GREAT VESSELS The aortic root is normal in size. The ascending aorta is normal in size. The pulmonary artery is normal. The IVC is normal in size and collapses >50% with inspiration. PERICARDIAL EFFUSION There is no pleural effusion. There is no pericardial effusion. <Conclusion> The left ventricle is normal size. There is mild concentric left ventricular hypertrophy. The left ventricular function is normal.EF-65% There is trace aortic regurgitation. S/p MV Repair, Trace MR. MVA 1.2 cm2 There is mild to moderate tricuspid regurgitation.RVSP-40 cmmof Hg. There is a pacemaker lead in the right ventricle.
== END 2017-01-03 18:55 | disposition home or self-care (01) | DRG 544 ==
LOC: ED 20:26 → ERH 23:51 → 2RNO 12-30 01:13 → 5RSO 12-31 15:45
PROVIDERS: ADMIT Internal Medicine; ATTEND Internal Medicine
PROC: 3E0F7GC Introduction of Other Therapeutic Substance into Respiratory Tract, Via Natural or Artificial Opening (ICD-10-PCS; principal; 2016-12-30)
DX: I11.0 Hypertensive heart disease with heart failure (principal); J18.9 Pneumonia, unspecified organism; I49.5 Sick sinus syndrome; F03.90 Unspecified dementia, unspecified severity, without behavioral disturbance, psychotic disturbance, mood disturbance, and anxiety; I48.0 Paroxysmal atrial fibrillation; E11.9 Type 2 diabetes mellitus without complications; I08.3 Combined rheumatic disorders of mitral, aortic and tricuspid valves; I50.33 Acute on chronic diastolic (congestive) heart failure; E78.5 Hyperlipidemia, unspecified; E03.9 Hypothyroidism, unspecified; F32.9 Major depressive disorder, single episode, unspecified; F41.9 Anxiety disorder, unspecified; R42 Dizziness and giddiness; E66.9 Obesity, unspecified; Z68.28 Body mass index [BMI] 28.0-28.9, adult; Z95.0 Presence of cardiac pacemaker; Z95.2 Presence of prosthetic heart valve; Z79.82 Long term (current) use of aspirin

== ENCOUNTER 2018-10-09 21:48 | Inpatient (IN) | payer MEDICARE, OTHER ==
[2018-10-09] MEDS: Sodium Chloride 0.9% 1,000 ML IV SCH (22:30)
[2018-10-09 22:33] LABS: BASO # 0.01 K/mm3 (0.0-2.0); BASO % 0.1 % (0.0-3.0); HEMOGLOBIN 12.9 g/dL (12.0-16.0); LYMPH # 1.3 (1.2-3.4); LYMPH % 13.3 % (22.0-35.0); MEAN CELL VOLUME 86.7 fl (80.0-105.0); MEAN CORPUSCULAR HEMOGLOBIN 28.2 pg (25.0-35.0); MEAN CORPUSCULAR HGB CONC 32.6 g/dl (31.0-37.0); MEAN PLATELET VOLUME 8.8 fl (7.0-11.0); MONO # 0.5 (0.1-0.6); MONO % 4.9 % (1.0-6.0); RBC 4.57 10^6/uL (3.5-6.1)
[2018-10-09 22:42] LABS: ALB/GLOB RATIO 1.3 (1.1-1.8); ALBUMIN 4.2 g/dL (3.0-4.8); ALT/SGPT 18 U/L (7-56); AST/SGOT 33 U/L (14-36); BLOOD UREA NITROGEN 24 mg/dL (7-21); CALCIUM 9.3 mg/dL (8.4-10.5); GFR NON-AFRICAN AMERICAN > 60; HDL CHOLESTEROL 38 mg/dL (29-60)
[2018-10-09 22:44] LABS: INR 1.08; PARTIAL THROMBOPLASTIN TIME 27.9 Seconds (26.9-38.3)
--- NOTE | 2018-10-09 22:49 | ED PDOC ---
Arrival/HPI - General Chief Complaint: Weakness/Neurological Deficit Time Seen by Provider: 10/09/18 21:49 - Critical Care Critical Care Minutes: 45 minutes - History of Present Illness Narrative History of Present Illness (Text): Patient presents with about 20-30 min history of L sided weakness and aphasia. According to family member, patient was normal at 2114. He went to take a shower, and at 2119 he noted that the patient was "acting weird" and "not speaking right". She has no history of CVA. Has cardiac history including mitral stenosis and pacemaker. Takes ASA but no other anticoagulants. Patient unable to provide any more information as she is aphasic. Family notes no apparent pain, fever, shortness of breath, or any other symptoms. Past Medical History - Provider Review Nursing Documentation Reviewed: Yes FORTUNATO Report Viewed: Yes - Travel History Have you recently traveled outside [place] w/in the past 3 mons?: No - Infectious Disease Hx of Infectious Diseases: None - Cardiac Hx Cardiac Disorders: Yes Hx Hypertension: Yes - Pulmonary Hx Pneumonia: Yes (11/2014) - Neurological Hx Neurological Disorder: No - HEENT Hx HEENT Disorder: No - Renal Hx Renal Disorder: No - Endocrine/Metabolic Hx Endocrine Disorders: No - Hematological/Oncological Other/Comment: blood infection last year in equador r hand 11/2014 - Integumentary Hx Dermatological Disorder: No - Musculoskeletal/Rheumatological Hx Unsteady Gait: Yes - Gastrointestinal Other/Comment: blood in stool - Genitourinary/Gynecological Hx Genitourinary Disorders: No - Psychiatric Hx Psychophysiologic Disorder: Yes Hx Substance Use: No - Surgical History Hx Valve Replacement: Yes Other/Comment: implanted pacemaker; colonoscopy, polypectomy - Anesthesia Hx Anesthesia: Yes Hx Anesthesia Reactions: No Hx Malignant Hyperthermia: No - Suicidal Assessment Feels Threatened In Home Enviroment: No Family/Social History Family/Social History: Unknown Family HX Smoking Status: Never Smoked Hx Alcohol Use: No Hx Substance Use: No Allergies/Home Meds Allergies/Adverse Reactions: Allergies No Known Allergies Allergy (Verified 10/09/18 21:50) Home Medications: Home Meds Medication Instructions Recorded Confirmed Aspirin [Aspir 81] 81 mg PO DAILY 03/05/13 10/09/18 Atorvastatin Calcium [Lipitor] 10 mg PO DAILY 03/05/13 10/09/18 Sertraline HCl 100 mg PO DAILY 03/05/13 10/09/18 Cholecalciferol (Vitamin D3) 50,000 unit PO DAILY 01/09/16 10/09/18 [Vitamin D3] Donepezil HCl 10 mg PO DAILY 01/09/16 10/09/18 amLODIPine [Norvasc] 1 tab PO DAILY 12/29/16 10/09/18 Review of Systems - Review of Systems Systems not reviewed;Unavailable: Other (Aphasia) Physical Exam Vital Signs Reviewed: Yes Temperature: Afebrile Blood Pressure: Normal Pulse: Regular Respiratory Rate: Normal Appearance: Positive for: Non-Toxic Mental Status: Positive for: other (Aphasic, unable to assess. Does not answer questions, but follows commands.) Finger Stick Blood Glucose: 164 - Systems Exam Head: Present: Atraumatic, Normocephalic Pupils: Present: PERRL Extroacular Muscles: Present: Gaze Palsy (Patient looking to right, with L neglect to confrontation) Conjunctiva: Present: Normal Mouth: Present: Moist Mucous Membranes Respiratory/Chest: Present: Clear to Auscultation Cardiovascular: Present: Regular Rate and Rhythm Abdomen: No: Tenderness, Rebound, Guarding Upper Extremity: Present: NORMAL PULSES, Capillary Refill < 2s. No: Edema, Tenderness, Temperature Abnormalties, Deformity Lower Extremity: Present: NORMAL PULSES, Capillary Refill < 2 s. No: Edema, Tenderness, Deformity, Temperature Abnormalties Neurological: No: Speech Normal (Aphasia), Motor Func Grossly Intact (Drift <10 seconds on LUE. Other extremities no drift with 5/5 strength) Skin: Present: Warm, Dry Medical Decision Making ED Course and Treatment: Patient evaluated upon arrival. Deficits include aphasia, R gaze palsy and L neglect, L arm weakness. Code stroke called. Patient immediately went to CT. Upon return from CT, L mouth droop noted. This is new since patient arrived. Other deficits still present. 10/09/18 22:05 CT Head, reviewed by radiologist: IMPRESSION: 1. There is generalized parenchymal atrophy noted as demonstrated by symmetrical dilatation of ventricles and sulci. 2. Chronic periventricular and subcortical microvascular disease is seen. 3. Diffuse skull thickening is again seen, nonspecific and can be idiopathic or related to condition such as Paget's, Fibrous dyspasia and metabolic diseases. 4. No acute intracranial pathology. No interval change. Electronically signed on Oct 09, 2018 10:18:01 PM EDT by: Bari Gan M.D., RUMA Certified By [facility] Fellowship Trained MRI and CT Specialist 10/09/18 22:[address] Slater. Recommends tPA, permissive hypertension with IV fluids and HOB down 30 degrees. EKG: Ordered, reviewed, and independently interpreted the EKG. Rate : 64 BPM Interpretation : paced rhythm, prolonged qtc, no concordant ST changes tPA bolus and infusion initiated at 2301. Case discussed with Dr. Rutherford, patient's PMD. Accepts admission to her service. Case discussed with Dr. Maradiaga for ICU admission. Patient went to CTA. No large clot burden noted on CTA imaging. - Lab Interpretations Lab Results: PT 12.0 SECONDS (9.4-12.5) 10/09/18 22:27 INR 1.08 10/09/18 22:27 APTT 27.9 Seconds (26.9-38.3) 10/09/18 22:27 Total Bilirubin 0.3 mg/dL (0.2-1.3) 10/09/18 22:27 AST 33 U/L (14-36) 10/09/18 22:27 ALT 18 U/L (7-56) 10/09/18 22:27 Alkaline Phosphatase 83 U/L (38-126) 10/09/18 22:27 Total Protein 7.3 g/dL (5.8-8.3) 10/09/18 22:27 Albumin 4.2 g/dL (3.0-4.8) 10/09/18 22:27 Globulin 3.1 gm/dL 10/09/18 22:27 Albumin/Globulin Ratio 1.3 (1.1-1.8) 10/09/18 22:27 - RAD Interpretation Radiology Orders: 10/09/18 21:55 HEAD W/O (CODE STROKE) [CT] Stat CHEST PORTABLE [RAD] Stat - Medication Orders Current Medication Orders: Alteplase, Recombinant (Activase 100 Mg Inj) 6 mg 0.09 mg/kg (6 mg) IV ONCE ONE Stop: 10/09/18 22:37 Alteplase, Recombinant (Activase 100 Mg Inj) 57 mg 0.81 mg/kg (57 mg) IV ONCE ONE Stop: 10/09/18 22:38 Sodium Chloride (Sodium Chloride 0.9%) 1,000 mls @ 100 mls/hr IV .Q10H BISI Last Admin: 10/09/18 22:30 Dose: 100 mls/hr eMAR Start Stop Document 10/09/18 22:30 RG (Rec: 10/09/18 22:47 RG [id number]) Intravenous Solution Start Date 10/09/18 Start Time 22:30 NIHSS Scale ([place]) Time Performed: 22:00 - How Severe is the Stoke Baseline Level of Consciousness: 0=Alert LOC to Questions: 2=Neither correct LOC to commands: 0=Obeys both correctly Best Gaze: 1=Partial gaze palsy Visual: 0=No visual loss Facial: 1=Minor asymmetry Motor Arm - Left: 1=Drift noted before 10 sec Motor Arm - Right: 0=No drift Motor Leg - Left: 0=No drift Motor Leg - Right: 0=No drift Limb Ataxia: 0=Absent Sensory: 0=Normal Best Language: 1=Mild to moderate aphasia Dysarthia: 1=Mild to moderate slurring Extinction & Inattention (Neglect): 1=Partial neglect (mild marc-attention) Score: 8 Risk Level: Mod Stroke Risk Disposition/Present on Arrival - Present on Arrival Any Indicators Present on Arrival: No History of DVT/PE: No History of Uncontrolled Diabetes: No Urinary Catheter: No History of Decub. Ulcer: No History Surgical Site Infection Following: None - Disposition Have Diagnosis and Disposition been Completed?: Yes Diagnosis: CVA (cerebral vascular accident) Disposition: HOSPITALIZED Disposition Time: 23:14 Condition: FAIR
[2018-10-09 22:52] LABS: LDL CHOLESTEROL 82 mg/dL (0-129)
[2018-10-09 22:55] LABS: TROPONIN I < 0.01 ng/mL
[2018-10-09] MEDS ORDERED: Sodium Chloride 0.9% 1,000 ML IV STA (23:16)
[2018-10-09] MEDS ORDERED: Iohexol 350 MG/100 ML VIAL ONE (23:21)
--- NOTE | 2018-10-10 00:24 | CP.PCM.CON ---
<Qamar Monsivais - Last Filed: 10/09/18 23:59> History of Present Illness - History of Present Illness History of Present Illness: ICU Consultation (Dr. Maradiaga's Service) CC: AMS/Dysarthria HPI: Mrs. Ramirez is a 88 year old female with a past medical history significant for mitral stenosis s/p mitral valve repair, permanent pacemaker for mitral regurgitation, paroxysmal atrial fibrillation, HTN, HLD and depression who presents with dysarthria and AMS. Patient is largely non-verbal during HPI and macedonian speaking only. Patients family is at bedside for HPI information. They report that the patient is normally independent with ADL's and has no difficulty with speaking. They last saw the patient at her baseline at approximately 2100 this evening. After this, the patient went to her room and was watching a movie on television in her bed when she suddenly started acting confused, thrashing her arms and progressively becoming more dysarthric. The patient became calmer since that time but is largely still confused and not at her baseline, according to patients family. They deny LOC, urinary/bowel incontinence, falls, tongue biting or seizure like activity. They deny this ever having happened in the past and this prompted them to bring the patient in for further evaluation. Of note, patient was recently seen by her PMD for a URI and was given antibiotics, prednisone, and an inhaler to use during the course of the antibiotics. Further ROS unobtainable at this time. While in the ED, patient was noted to have developed a left facial droop. The on-call neurologist was notified of this and patient was administered tPA. 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 Berry Review of Systems - Review of Systems Systems not reviewed;Unavailable: Altered Mental Status Past Patient History - Infectious Disease Hx of Infectious Diseases: None - Past Social History Smoking Status: Never Smoked - CARDIAC Hx Cardiac Disorders: Yes Hx Hypertension: Yes - PULMONARY Hx Pneumonia: Yes (11/2014) - NEUROLOGICAL Hx Neurological Disorder: No - HEENT Hx HEENT Problems: No - RENAL Hx Chronic Kidney Disease: No - ENDOCRINE/METABOLIC Hx Endocrine Disorders: No - HEMATOLOGICAL/ONCOLOGICAL Other/Comment: blood infection last year in [place] 11/2014 - INTEGUMENTARY Hx Dermatological Problems: No - MUSCULOSKELETAL/RHEUMATOLOGICAL Hx Unsteady Gait: Yes - GASTROINTESTINAL Other/Comment: blood in stool - GENITOURINARY/GYNECOLOGICAL Hx Genitourinary Disorders: No - PSYCHIATRIC Hx Psychophysiologic Disorder: Yes Hx Substance Use: No - SURGICAL HISTORY Hx Valve Replacement: Yes Other/Comment: implanted pacemaker; colonoscopy, polypectomy - ANESTHESIA Hx Anesthesia: Yes Hx Anesthesia Reactions: No Hx Malignant Hyperthermia: No Meds Allergies/Adverse Reactions: Allergies Allergy/AdvReac Type Severity Reaction Status Date / Time No Known Allergies Allergy Verified 10/09/18 21:50 - Medications Medications: Current Medications Sodium Chloride (Sodium Chloride 0.9%) 1,000 mls @ 100 mls/hr IV .Q10H BISI Last Admin: 10/09/18 22:30 Dose: 100 mls/hr Sodium Chloride (Sodium Chloride 0.9%) 1,000 mls @ 999 mls/hr IV .Q1H1M STA Stop: 10/10/18 00:16 Last Admin: 10/09/18 23:45 Dose: 999 mls/hr Physical Exam - Constitutional Appears: Non-toxic, No Acute Distress - Head Exam Head Exam: ATRAUMATIC, NORMOCEPHALIC - Eye Exam Eye Exam: EOMI, Normal appearance, PERRL. absent: Conjunctival injection, Nystagmus, Scleral icterus Pupil Exam: NORMAL ACCOMODATION. absent: Fixed, Irregular, Miosis, Mydriatic, Unequal - ENT Exam ENT Exam: Mucous Membranes Moist - Neck Exam Neck exam: Positive for: Full Rom - Respiratory Exam Respiratory Exam: Clear to Auscultation Bilateral, NORMAL BREATHING PATTERN. absent: Rales, Rhonchi, Wheezes, Respiratory Distress - Cardiovascular Exam Cardiovascular Exam: REGULAR RHYTHM, RRR, +S1, +S2 - GI/Abdominal Exam GI & Abdominal Exam: Normal Bowel Sounds, Soft. absent: Tenderness - Extremities Exam Extremities exam: Positive for: normal inspection. Negative for: calf tenderness, pedal edema - Expanded Neurological Exam Expanded Speech: Garbled Speech Cranial nerves: EOM's Intact: Normal, Nystagmus: Normal Upper motor neuron: Pronator Drift: Normal Sensory exam: Lower Extremity Light Touch: Normal, Upper Extremity Light Touch: Normal Neuro motor strength exam: Left Upper Extremity: 4, Right Upper Extremity: 4, Left Lower Extremity: 3, Right Lower Extremity: 4 Coma Scale Eye Opening: SPONTANEOUS Coma Scale Motor Response: OBEYS COMMANDS Coma Scale Verbal: Confused Coma Scale Total: 14 - Skin Skin Exam: Dry, Warm Results - Vital Signs Recent Vital Signs: Last Vital Signs Temp Pulse 60 10/09/18 23:17 Resp 18 10/09/18 23:17 BP 123/70 10/09/18 23:17 Pulse Ox 97 10/09/18 23:17 - Labs Result Diagrams: 10/09/18 22:27 10/09/18 22:27 Labs: Laboratory Results - last 24 hr 10/09/18 10/09/18 10/09/18 22:27 22:27 22:27 WBC 10.0 RBC 4.57 Hgb 12.9 Hct 39.6 MCV 86.7 MCH 28.2 MCHC 32.6 RDW 15.0 H Plt Count 247 MPV 8.8 Neut % (Auto) 81.7 H Lymph % (Auto) 13.3 L [place] % (Auto) 4.9 Eos % (Auto) 0.0 L Baso % (Auto) 0.1 Lymph # (Auto) 1.3 [place] # (Auto) 0.5 Eos # (Auto) 0.0 Baso # (Auto) 0.01 Absolute Neuts (auto) 8.14 H PT 12.0 INR 1.08 APTT 27.9 Sodium 138 Potassium 3.7 Chloride 100 Carbon Dioxide 24 Anion Gap 17 BUN 24 H Creatinine 0.8 Est GFR ( Amer) > 60 Est GFR (Non-Af Amer) > 60 Random Glucose 184 H Calcium 9.3 Total Bilirubin 0.3 AST 33 ALT 18 Alkaline Phosphatase 83 Troponin I < 0.01 Total Protein 7.3 Albumin 4.2 Globulin 3.1 Albumin/Globulin Ratio 1.3 Triglycerides 159 Cholesterol 138 LDL Cholesterol Direct 82 HDL Cholesterol 38 BBK History Checked 10/09/18 22:52 WBC RBC Hgb Hct MCV MCH MCHC RDW Plt Count MPV Neut % (Auto) Lymph % (Auto) [place] % (Auto) Eos % (Auto) Baso % (Auto) Lymph # (Auto) [place] # (Auto) Eos # (Auto) Baso # (Auto) Absolute Neuts (auto) PT INR APTT Sodium Potassium Chloride Carbon Dioxide Anion Gap BUN Creatinine Est GFR ( Amer) Est GFR (Non-Af Amer) Random Glucose Calcium Total Bilirubin AST ALT Alkaline Phosphatase Troponin I Total Protein Albumin Globulin Albumin/Globulin Ratio Triglycerides Cholesterol LDL Cholesterol Direct HDL Cholesterol BBK History Checked No verified bt Assessment & Plan - Assessment and Plan (Free Text) Assessment: 88 year old female with a past medical history significant for mitral stenosis s/p mitral valve repair, permanent pacemaker for mitral regurgitation, paroxysmal atrial fibrillation, HTN, HLD and depression who presents with dysarthria and AMS. Plan: 1. 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 Patient seen and case discussed with attending, Dr. Maradiaga. Qamar Monsivais PGY2 - Date & Time Date: 10/10/18 Time: 00:25 <Maty Maradiaga - Last Filed: 10/10/18 04:51> Meds - Medications Medications: Current Medications Sodium Chloride (Sodium Chloride 0.9%) 1,000 mls @ 100 mls/hr IV .Q10H BISI Last Admin: 10/10/18 01:32 Dose: 100 mls/hr Pantoprazole Sodium (Protonix Inj) 40 mg IVP DAILY BISI Results - Vital Signs Recent Vital Signs: Last Vital Signs Temp 98 F 10/10/18 01:04 Pulse 81 10/10/18 03:06 Resp 24 10/10/18 03:06 BP 126/82 10/10/18 03:06 Pulse Ox 95 10/10/18 03:06 - Labs Result Diagrams: 10/09/18 22:27 10/09/18 22:27 Labs: Laboratory Results - last 24 hr 10/09/18 10/09/18 10/09/18 22:27 22:27 22:27 WBC 10.0 RBC 4.57 Hgb 12.9 Hct 39.6 MCV 86.7 MCH 28.2 MCHC 32.6 RDW 15.0 H Plt Count 247 MPV 8.8 Neut % (Auto) 81.7 H Lymph % (Auto) 13.3 L [place] % (Auto) 4.9 Eos % (Auto) 0.0 L Baso % (Auto) 0.1 Lymph # (Auto) 1.3 [place] # (Auto) 0.5 Eos # (Auto) 0.0 Baso # (Auto) 0.01 Absolute Neuts (auto) 8.14 H PT 12.0 INR 1.08 APTT 27.9 Sodium 138 Potassium 3.7 Chloride 100 Carbon Dioxide 24 Anion Gap 17 BUN 24 H Creatinine 0.8 Est GFR ( Amer) > 60 Est GFR (Non-Af Amer) > 60 Random Glucose 184 H Calcium 9.3 Total Bilirubin 0.3 AST 33 ALT 18 Alkaline Phosphatase 83 Troponin I < 0.01 Total Protein 7.3 Albumin 4.2 Globulin 3.1 Albumin/Globulin Ratio 1.3 Triglycerides 159 Cholesterol 138 LDL Cholesterol Direct 82 HDL Cholesterol 38 Blood Type Blood Type Confirm Antibody Screen BBK History Checked 10/09/18 10/10/18 22:52 00:13 WBC RBC Hgb Hct MCV MCH MCHC RDW Plt Count MPV Neut % (Auto) Lymph % (Auto) [place] % (Auto) Eos % (Auto) Baso % (Auto) Lymph # (Auto) [place] # (Auto) Eos # (Auto) Baso # (Auto) Absolute Neuts (auto) PT INR APTT Sodium Potassium Chloride Carbon Dioxide Anion Gap BUN Creatinine Est GFR ( Amer) Est GFR (Non-Af Amer) Random Glucose Calcium Total Bilirubin AST ALT Alkaline Phosphatase Troponin I Total Protein Albumin Globulin Albumin/Globulin Ratio Triglycerides Cholesterol LDL Cholesterol Direct HDL Cholesterol Blood Type O POSITIVE Blood Type Confirm O POSITIVE Antibody Screen Negative BBK History Checked No verified bt Attending/Attestation - Attestation I have personally seen and examined this patient.: Yes I have fully participated in the care of the patient.: Yes I have reviewed all pertinent clinical information: Yes Notes (Text): 10/10/18 04:27 Patient was seen when she was in the ER in bed #1 . Medical record was reviewed. Agree with history, physical examination, assessment and plan.
[2018-10-10] MEDS: Sodium Chloride 0.9% 1,000 ML IV SCH (01:32)
[2018-10-10 01:57] VITALS: BMI 32.0
[2018-10-10] MEDS: Albuterol-Ipratrop 3 mg / 0.5 (3 ml) UD IH SCH ×3 (07:57→20:47)
--- NOTE | 2018-10-10 09:00 | CARD ---
APPROVED REPORT Date of service: 10/09/2018 EKG Measurement Heart [id number] <Conclusion> Electronic ventricular pacemaker
--- NOTE | 2018-10-10 11:57 | RAD ---
Date of service: 10/09/2018 HISTORY: Code Stroke COMPARISON: 01/02/2017 FINDINGS: LUNGS: No active pulmonary disease. Pulmonary vascular prominence accentuated by portable technique and poor inspiratory effort. PLEURA: No significant pleural effusion identified, no pneumothorax apparent. CARDIOVASCULAR: No atherosclerotic calcification present Cardiomegaly. No evidence of acute, significant cardiovascular disease. Position/ configuration of pacemaker Satisfactory. OSSEOUS STRUCTURES: No significant abnormalities. VISUALIZED UPPER ABDOMEN: Normal. OTHER FINDINGS: None. IMPRESSION: No active disease. No significant interval change compared to the prior examination(s).
--- NOTE | 2018-10-10 12:11 | CP.PCM.CON ---
History of Present Illness - History of Present Illness History of Present Illness: Neurology Consultation Note: Consult requested by Dr. Urvashi River Mrs. Ramirez is an 88-year-old woman with a past medical history of mitral stenosis s/p mitral valve repair, permanent pacemaker for mitral regurgitation, paroxysmal atrial fibrillation, HTN, HLD and depression who was last normal last night at 9 PM, and developed left side weakness and aphasia last night. She presented to the ED about 35 minutes after symptom onset. CT scan of the head did not show any bleed. I spoke with Dr. River and recommended IV tPA. She was a candidate for IV tPA and received the infusion with drip and transferred to the ICU. Today, the patient is moving all extremities well and much more verbal. Review of Systems - Review of Systems Systems not reviewed;Unavailable: Other Past Patient History - Infectious Disease Hx of Infectious Diseases: None - Past Social History Smoking Status: Never Smoked - CARDIAC Hx Cardiac Disorders: Yes Hx Hypertension: Yes - PULMONARY Hx Pneumonia: Yes - NEUROLOGICAL Hx Neurological Disorder: No - HEENT Hx HEENT Problems: No - RENAL Hx Chronic Kidney Disease: No - ENDOCRINE/METABOLIC Hx Endocrine Disorders: No - HEMATOLOGICAL/ONCOLOGICAL Other/Comment: blood infection last year in [facility] [place] 11/2014 - INTEGUMENTARY Hx Dermatological Problems: No - MUSCULOSKELETAL/RHEUMATOLOGICAL Hx Unsteady Gait: Yes - GASTROINTESTINAL Other/Comment: blood in stool - GENITOURINARY/GYNECOLOGICAL Hx Genitourinary Disorders: No - PSYCHIATRIC Hx Psychophysiologic Disorder: Yes Hx Substance Use: No - SURGICAL HISTORY Hx Valve Replacement: Yes Other/Comment: implanted pacemaker; colonoscopy, polypectomy - ANESTHESIA Hx Anesthesia: Yes Hx Anesthesia Reactions: No Hx Malignant Hyperthermia: No Meds Allergies/Adverse Reactions: Allergies Allergy/AdvReac Type Severity Reaction Status Date / Time No Known Allergies Allergy Verified 10/09/18 21:50 - Medications Medications: Current Medications Albuterol/Ipratropium (Duoneb 3 Mg/0.5 Mg (3 Ml) Ud) 3 ml IH [id number] BISI Last Admin: 10/10/18 07:57 Dose: 3 ml Aspirin (Aspirin Chewable) 81 mg PO DAILY BISI Atorvastatin Calcium (Lipitor) 20 mg PO DIN [facility] Sodium Chloride (Sodium Chloride 0.9%) 1,000 mls @ 100 mls/hr IV .Q10H BISI Last Admin: 10/10/18 01:32 Dose: 100 mls/hr Pantoprazole Sodium (Protonix Inj) 40 mg IVP DAILY BISI Last Admin: 10/10/18 10:16 Dose: 40 mg Physical Exam - Constitutional Appears: Well - Head Exam Head Exam: ATRAUMATIC, NORMAL INSPECTION, NORMOCEPHALIC - Eye Exam Eye Exam: EOMI, Normal appearance, PERRL Pupil Exam: NORMAL ACCOMODATION, PERRL - ENT Exam ENT Exam: Mucous Membranes Moist, Normal Exam - Neck Exam Neck exam: Positive for: Normal Inspection - Respiratory Exam Respiratory Exam: Clear to Auscultation Bilateral, NORMAL BREATHING PATTERN - Cardiovascular Exam Cardiovascular Exam: REGULAR RHYTHM, +S1, +S2 - GI/Abdominal Exam GI & Abdominal Exam: Normal Bowel Sounds, Soft. absent: Tenderness - Extremities Exam Extremities exam: Positive for: normal inspection - Back Exam Back exam: NORMAL INSPECTION - Neurological Exam Neurological exam: Abnormal Gait, Alert, CN II-XII Intact, Oriented x3, Reflexes Normal Additional comments: Dysarthric, not aphasic. Left facial droop, left slight pronator drift noted. Sensation is intact throughout. NIHSS = 4 - Psychiatric Exam Psychiatric exam: Normal Affect, Normal Mood - Skin Skin Exam: Dry, Intact, Normal Color, Warm Results - Vital Signs Recent Vital Signs: Last Vital Signs Temp 98 F 10/10/18 01:04 Pulse 64 10/10/18 10:20 Resp 43 H 10/10/18 10:20 BP 160/89 H 10/10/18 10:00 Pulse Ox 100 10/10/18 10:20 - Labs Result Diagrams: 10/09/18 22:27 10/09/18 22:27 Labs: Laboratory Results - last 24 hr 10/09/18 10/09/18 10/09/18 22:27 22:27 22:27 WBC 10.0 RBC 4.57 Hgb 12.9 Hct 39.6 MCV 86.7 MCH 28.2 MCHC 32.6 RDW 15.0 H Plt Count 247 MPV 8.8 Neut % (Auto) 81.7 H Lymph % (Auto) 13.3 L [place] % (Auto) 4.9 Eos % (Auto) 0.0 L Baso % (Auto) 0.1 Lymph # (Auto) 1.3 [place] # (Auto) 0.5 Eos # (Auto) 0.0 Baso # (Auto) 0.01 Absolute Neuts (auto) 8.14 H PT 12.0 INR 1.08 APTT 27.9 Sodium 138 Potassium 3.7 Chloride 100 Carbon Dioxide 24 Anion Gap 17 BUN 24 H Creatinine 0.8 Est GFR ( Amer) > 60 Est GFR (Non-Af Amer) > 60 Random Glucose 184 H Calcium 9.3 Total Bilirubin 0.3 AST 33 ALT 18 Alkaline Phosphatase 83 Troponin I < 0.01 Total Protein 7.3 Albumin 4.2 Globulin 3.1 Albumin/Globulin Ratio 1.3 Triglycerides 159 Cholesterol 138 LDL Cholesterol Direct 82 HDL Cholesterol 38 Blood Type Blood Type Confirm Antibody Screen BBK History Checked 10/09/18 10/10/18 22:52 00:13 WBC RBC Hgb Hct MCV MCH MCHC RDW Plt Count MPV Neut % (Auto) Lymph % (Auto) [place] % (Auto) Eos % (Auto) Baso % (Auto) Lymph # (Auto) [place] # (Auto) Eos # (Auto) Baso # (Auto) Absolute Neuts (auto) PT INR APTT Sodium Potassium Chloride Carbon Dioxide Anion Gap BUN Creatinine Est GFR ( Amer) Est GFR (Non-Af Amer) Random Glucose Calcium Total Bilirubin AST ALT Alkaline Phosphatase Troponin I Total Protein Albumin Globulin Albumin/Globulin Ratio Triglycerides Cholesterol LDL Cholesterol Direct HDL Cholesterol Blood Type O POSITIVE Blood Type Confirm O POSITIVE Antibody Screen Negative BBK History Checked No verified bt Assessment & Plan - Assessment and Plan (Free Text) Assessment: Ischemic stroke likely due to embolic etiology considering the history of atrial fibrillation and mitral valve replacement. She is unable to obtain MRI due to pacemaker. Plan: 1. Transfer out of ICU to telemetry 24 hours after tPA 2. Repeat non-contrast CT head tomorrow 3. Will consider starting the patient on Eliquis tomorrow depending on CT head results 4. PT/OT eval and treatment 5. Post-tPA blood pressure parameters 6. Echocardiogram 7. Lipid panel, HbA1c, B12, folate, TSH, Vitamin D level 8. Lipitor 40 mg daily 9. Case management consult Thank you for this consultation.
--- NOTE | 2018-10-10 12:26 | CP.CCUPN ---
<Jose Mcknight - Last Filed: 10/10/18 16:43> CCU Subjective - Physician Review Events Since Last Encounter (Free Text): 10/10/18 12:25 Pt recievd from ED with garbled speech, able to follow commands, minimal left sided weakness Subjective (Free Text): 10/10/18 12:30 Pt seen and examined this morning in the ICU. Pt has no new complaints at this time. Critical Care Time Spent (in minutes): 45 CCU Objective - Vital Signs / Intake & Output Vital Signs (Last 4 hours): Vital Signs Pulse Resp BP Pulse Ox 10/10/18 10:20 64 43 H 100 10/10/18 10:10 60 21 100 10/10/18 10:00 60 32 H 160/89 H 99 10/10/18 09:50 63 22 99 10/10/18 09:40 64 40 H 99 10/10/18 09:30 61 98 10/10/18 09:20 60 20 96 10/10/18 09:10 61 37 H 100 10/10/18 09:00 62 24 141/73 97 10/10/18 08:50 61 24 99 10/10/18 08:40 62 25 H 99 10/10/18 08:30 61 19 100 Intake and Output (Last 8hrs): Intake & Output 10/09/18 10/10/18 10/10/18 22:59 06:59 14:59 Intake Total 1500 Output Total 400 Balance 1100 Weight 155 lb 4 oz 143 lb 3.2 oz Intake: IV 1500 Left 1500 Oral 0 Output: Urine 400 Urethral (Aguilar) 400 Other: Voiding Method Bedpan # Bowel Movements 2 - Physical Exam Head: Positive for: Atraumatic, Normocephalic Pupils: Positive for: PERRL Extroacular Muscles: Positive for: Gaze Palsy (Patient looking to right, with L neglect to confrontation) Conjunctiva: Positive for: Normal Mouth: Positive for: Moist Mucous Membranes Respiratory/Chest: Positive for: Clear to Auscultation Cardiovascular: Positive for: Regular Rate and Rhythm Abdomen: Negative for: Tenderness, Rebound, Guarding Upper Extremity: Positive for: NORMAL PULSES, Capillary Refill < 2s. Negative for: Edema, Tenderness, Temperature Abnormalties, Deformity Lower Extremity: Positive for: NORMAL PULSES, Capillary Refill < 2 s. Negative for: Edema, Tenderness, Deformity, Temperature Abnormalties Neurological: Negative for: CN II-XII Intact, Speech Normal (Aphasia), Motor Func Grossly Intact (Drift <10 seconds on LUE. Other extremities no drift with 5/5 strength) Skin: Positive for: Warm, Dry Psychiatric: Positive for: Alert, Oriented x 3 - Medications Active Medications: Active Medications Generic Name Dose Route Start Last Admin Trade Name Freq PRN Reason Stop Dose Admin Albuterol/Ipratropium 3 ml 10/10/18 08:00 10/10/18 07:57 Duoneb 3 Mg/0.5 Mg (3 Ml) Ud IH 3 ml [id number] BISI Administration Aspirin 81 mg 10/10/18 12:00 Aspirin Chewable PO DAILY BISI Atorvastatin Calcium 20 mg 10/10/18 17:00 Lipitor PO DIN BISI Sodium Chloride 1,000 mls @ 100 mls/hr 10/09/18 22:00 10/10/18 01:32 Sodium Chloride 0.9% IV 100 mls/hr .Q10H BISI Administration Pantoprazole Sodium 40 mg 10/10/18 10:00 10/10/18 10:16 Protonix Inj IVP 40 mg DAILY BISI Administration - Patient Studies Lab Studies: Lab Studies 10/10/18 10/09/18 10/09/18 Range/Units 00:13 22:52 22:27 WBC (4.5-11.0) 10^3/uL RBC (3.5-6.1) 10^6/uL Hgb (12.0-16.0) g/dL Hct (36.0-48.0) % MCV (80.0-105.0) fl MCH (25.0-35.0) pg MCHC (31.0-37.0) g/dl RDW (11.5-14.5) % Plt Count (120.0-450.0) 10^3/uL MPV (7.0-11.0) fl Neut % (Auto) (50.0-68.0) % Lymph % (Auto) (22.0-35.0) % [place] % (Auto) (1.0-6.0) % Eos % (Auto) (1.5-5.0) % Baso % (Auto) (0.0-3.0) % Lymph # (Auto) (1.2-3.4) [place] # (Auto) (0.1-0.6) Eos # (Auto) (0.0-0.7) Baso # (Auto) (0.0-2.0) K/mm3 Absolute Neuts (auto) (1.4-6.5) PT (9.4-12.5) SECONDS INR APTT (26.9-38.3) Seconds Sodium 138 (132-148) mmol/L Potassium 3.7 (3.6-5.0) mmol/L Chloride 100 (98-107) mmol/L Carbon Dioxide 24 (21-33) mmol/L Anion Gap 17 (10-20) BUN 24 H (7-21) mg/dL Creatinine 0.8 (0.7-1.2) mg/dl Est GFR ( Amer) > 60 Est GFR (Non-Af Amer) > 60 Random Glucose 184 H (70-110) mg/dL Calcium 9.3 (8.4-10.5) mg/dL Total Bilirubin 0.3 (0.2-1.3) mg/dL AST 33 (14-36) U/L ALT 18 (7-56) U/L Alkaline Phosphatase 83 (38-126) U/L Troponin I < 0.01 ng/mL Total Protein 7.3 (5.8-8.3) g/dL Albumin 4.2 (3.0-4.8) g/dL Globulin 3.1 gm/dL Albumin/Globulin Ratio 1.3 (1.1-1.8) Triglycerides 159 (35-160) mg/dL Cholesterol 138 (130-200) mg/dL LDL Cholesterol Direct 82 (0-129) mg/dL HDL Cholesterol 38 (29-60) mg/dL Blood Type O POSITIVE Blood Type Confirm O POSITIVE Antibody Screen Negative BBK History Checked No verified bt 10/09/18 10/09/18 Range/Units 22:27 22:27 WBC 10.0 (4.5-11.0) 10^3/uL RBC 4.57 (3.5-6.1) 10^6/uL Hgb 12.9 (12.0-16.0) g/dL Hct 39.6 (36.0-48.0) % MCV 86.7 (80.0-105.0) fl MCH 28.2 (25.0-35.0) pg MCHC 32.6 (31.0-37.0) g/dl RDW 15.0 H (11.5-14.5) % Plt Count 247 (120.0-450.0) 10^3/uL MPV 8.8 (7.0-11.0) fl Neut % (Auto) 81.7 H (50.0-68.0) % Lymph % (Auto) 13.3 L (22.0-35.0) % [place] % (Auto) 4.9 (1.0-6.0) % Eos % (Auto) 0.0 L (1.5-5.0) % Baso % (Auto) 0.1 (0.0-3.0) % Lymph # (Auto) 1.3 (1.2-3.4) [place] # (Auto) 0.5 (0.1-0.6) Eos # (Auto) 0.0 (0.0-0.7) Baso # (Auto) 0.01 (0.0-2.0) K/mm3 Absolute Neuts (auto) 8.14 H (1.4-6.5) PT 12.0 (9.4-12.5) SECONDS INR 1.08 APTT 27.9 (26.9-38.3) Seconds Sodium (132-148) mmol/L Potassium (3.6-5.0) mmol/L Chloride (98-107) mmol/L Carbon Dioxide (21-33) mmol/L Anion Gap (10-20) BUN (7-21) mg/dL Creatinine (0.7-1.2) mg/dl Est GFR ( Amer) Est GFR (Non-Af Amer) Random Glucose (70-110) mg/dL Calcium (8.4-10.5) mg/dL Total Bilirubin (0.2-1.3) mg/dL AST (14-36) U/L ALT (7-56) U/L Alkaline Phosphatase (38-126) U/L Troponin I ng/mL Total Protein (5.8-8.3) g/dL Albumin (3.0-4.8) g/dL Globulin gm/dL Albumin/Globulin Ratio (1.1-1.8) Triglycerides (35-160) mg/dL Cholesterol (130-200) mg/dL LDL Cholesterol Direct (0-129) mg/dL HDL Cholesterol (29-60) mg/dL Blood Type Blood Type Confirm Antibody Screen BBK History Checked Laboratory Results - last 24 hr 10/09/18 10/09/18 10/09/18 22:27 22:27 22:27 WBC 10.0 RBC 4.57 Hgb 12.9 Hct 39.6 MCV 86.7 MCH 28.2 MCHC 32.6 RDW 15.0 H Plt Count 247 MPV 8.8 Neut % (Auto) 81.7 H Lymph % (Auto) 13.3 L [place] % (Auto) 4.9 Eos % (Auto) 0.0 L Baso % (Auto) 0.1 Lymph # (Auto) 1.3 [place] # (Auto) 0.5 Eos # (Auto) 0.0 Baso # (Auto) 0.01 Absolute Neuts (auto) 8.14 H PT 12.0 INR 1.08 APTT 27.9 Sodium 138 Potassium 3.7 Chloride 100 Carbon Dioxide 24 Anion Gap 17 BUN 24 H Creatinine 0.8 Est GFR ( Amer) > 60 Est GFR (Non-Af Amer) > 60 Random Glucose 184 H Calcium 9.3 Total Bilirubin 0.3 AST 33 ALT 18 Alkaline Phosphatase 83 Troponin I < 0.01 Total Protein 7.3 Albumin 4.2 Globulin 3.1 Albumin/Globulin Ratio 1.3 Triglycerides 159 Cholesterol 138 LDL Cholesterol Direct 82 HDL Cholesterol 38 Blood Type Blood Type Confirm Antibody Screen BBK History Checked 10/09/18 10/10/18 22:52 00:13 WBC RBC Hgb Hct MCV MCH MCHC RDW Plt Count MPV Neut % (Auto) Lymph % (Auto) [place] % (Auto) Eos % (Auto) Baso % (Auto) Lymph # (Auto) [place] # (Auto) Eos # (Auto) Baso # (Auto) Absolute Neuts (auto) PT INR APTT Sodium Potassium Chloride Carbon Dioxide Anion Gap BUN Creatinine Est GFR ( Amer) Est GFR (Non-Af Amer) Random Glucose Calcium Total Bilirubin AST ALT Alkaline Phosphatase Troponin I Total Protein Albumin Globulin Albumin/Globulin Ratio Triglycerides Cholesterol LDL Cholesterol Direct HDL Cholesterol Blood Type O POSITIVE Blood Type Confirm O POSITIVE Antibody Screen Negative BBK History Checked No verified bt Radiology Impressions: Radiology Impressions Chest X-Ray 10/09/18 21:55 IMPRESSION: No active disease. No significant interval change compared to the prior examination(s). EKG/Cardiology Studies: Cardiology / EKG Studies 10/09/18 21:55 ELECTROCARDIOGRAM Stat Comment: Reason For Exam: cva Fingerstick Blood Sugar Results: 164 Critical Care Progress Note - Nutrition Nutrition: Nutrition Category Date Time Status Heart Healthy Diet [DIET] Diets 10/10/18 Lunch Active Assessment/Plan - Assessment and Plan (Free Text) Assessment: Pt is a 88 yo female with a PMH of mitral stenosis s/p mitral valve repair, pacemaker for mitral regurgitation, paroxysmal atrial fibrillation, HTN, HLD and depression who presents with dysarthria and AMS. Plan: Neuro - CVA - Head CTA follow up - Head CT negative for bleed - Neuro consulted, Dr Slater transfer out of ICU to tele 24 hours after TPA. Repeat non-con CT head tomorrw. May start pt on Eliquis tomorrow. Rec ECHO, HA1C, B12, folate, TSH, vit D level. Start on Lipitor. Cadio - paroxysmal a fib - ASA - may start on Eliquis tomorrow, after CT head results and bleed ruled out - Maintain MAP >65 - Trop negative x1 - ECHO follow up - Cardio consulted, Dr Jamal Cotter - Maintain O2 sat >92 - duonebs GI - AST/ALT 33/18 - pantoprazole - HHD Heme - monitor H/H - Hgb 12.9 - INR 1.08 Nephro/ - BUN 24 - Cr 0.8 Endo - maintain euglycemia ID WBC 10.0 Pt seen, examined, assessment and plan discussed with Dr Heidy Mcknight PGY1 - Date & Time Date: 10/10/18 Time: 08:00 <Diogenes Scott - Last Filed: 10/10/18 18:02> CCU Objective - Vital Signs / Intake & Output Intake and Output (Last 8hrs): Intake & Output 10/10/18 10/10/18 10/10/18 06:59 14:59 22:59 Intake Total 1500 Output Total 400 Balance 1100 Weight 64.954 kg Intake: IV 1500 Left 1500 Oral 0 Output: Urine 400 Urethral (Aguilar) 400 Other: Voiding Method Bedpan # Bowel Movements 2 - Medications Active Medications: Active Medications Generic Name Dose Route Start Last Admin Trade Name Freq PRN Reason Stop Dose Admin Albuterol/Ipratropium 3 ml 10/10/18 08:00 10/10/18 13:01 Duoneb 3 Mg/0.5 Mg (3 Ml) Ud IH 3 ml [id number] BISI Administration Aspirin 81 mg 10/10/18 12:00 10/10/18 13:10 Aspirin Chewable PO 81 mg DAILY BISI Administration Atorvastatin Calcium 20 mg 10/10/18 17:00 10/10/18 17:41 Lipitor PO 20 mg DIN BISI Administration Azithromycin 500 mg 10/10/18 17:59 Zithromax PO 10/10/18 18:00 ONCE ONE Protocol Azithromycin 250 mg 10/11/18 10:00 Zithromax PO 10/14/18 23:59 DAILY BISI Protocol Pantoprazole Sodium 40 mg 10/10/18 10:00 10/10/18 10:16 Protonix Inj IVP 40 mg DAILY BISI Administration Prednisone 20 mg 10/10/18 18:00 Prednisone Tab PO 10/12/18 23:59 BID BISI - Patient Studies Lab Studies: Lab Studies 10/10/18 10/09/18 10/09/18 Range/Units 00:13 22:52 22:27 WBC (4.5-11.0) 10^3/uL RBC (3.5-6.1) 10^6/uL Hgb (12.0-16.0) g/dL Hct (36.0-48.0) % MCV (80.0-105.0) fl MCH (25.0-35.0) pg MCHC (31.0-37.0) g/dl RDW (11.5-14.5) % Plt Count (120.0-450.0) 10^3/uL MPV (7.0-11.0) fl Neut % (Auto) (50.0-68.0) % Lymph % (Auto) (22.0-35.0) % [place] % (Auto) (1.0-6.0) % Eos % (Auto) (1.5-5.0) % Baso % (Auto) (0.0-3.0) % Lymph # (Auto) (1.2-3.4) [place] # (Auto) (0.1-0.6) Eos # (Auto) (0.0-0.7) Baso # (Auto) (0.0-2.0) K/mm3 Absolute Neuts (auto) (1.4-6.5) PT (9.4-12.5) SECONDS INR APTT (26.9-38.3) Seconds Sodium 138 (132-148) mmol/L Potassium 3.7 (3.6-5.0) mmol/L Chloride 100 (98-107) mmol/L Carbon Dioxide 24 (21-33) mmol/L Anion Gap 17 (10-20) BUN 24 H (7-21) mg/dL Creatinine 0.8 (0.7-1.2) mg/dl Est GFR ( Amer) > 60 Est GFR (Non-Af Amer) > 60 Random Glucose 184 H (70-110) mg/dL Calcium 9.3 (8.4-10.5) mg/dL Total Bilirubin 0.3 (0.2-1.3) mg/dL AST 33 (14-36) U/L ALT 18 (7-56) U/L Alkaline Phosphatase 83 (38-126) U/L Troponin I < 0.01 ng/mL Total Protein 7.3 (5.8-8.3) g/dL Albumin 4.2 (3.0-4.8) g/dL Globulin 3.1 gm/dL Albumin/Globulin Ratio 1.3 (1.1-1.8) Triglycerides 159 (35-160) mg/dL Cholesterol 138 (130-200) mg/dL LDL Cholesterol Direct 82 (0-129) mg/dL HDL Cholesterol 38 (29-60) mg/dL Blood Type O POSITIVE Blood Type Confirm O POSITIVE Antibody Screen Negative BBK History Checked No verified bt 10/09/18 10/09/18 Range/Units 22:27 22:27 WBC 10.0 (4.5-11.0) 10^3/uL RBC 4.57 (3.5-6.1) 10^6/uL Hgb 12.9 (12.0-16.0) g/dL Hct 39.6 (36.0-48.0) % MCV 86.7 (80.0-105.0) fl MCH 28.2 (25.0-35.0) pg MCHC 32.6 (31.0-37.0) g/dl RDW 15.0 H (11.5-14.5) % Plt Count 247 (120.0-450.0) 10^3/uL MPV 8.8 (7.0-11.0) fl Neut % (Auto) 81.7 H (50.0-68.0) % Lymph % (Auto) 13.3 L (22.0-35.0) % [place] % (Auto) 4.9 (1.0-6.0) % Eos % (Auto) 0.0 L (1.5-5.0) % Baso % (Auto) 0.1 (0.0-3.0) % Lymph # (Auto) 1.3 (1.2-3.4) [place] # (Auto) 0.5 (0.1-0.6) Eos # (Auto) 0.0 (0.0-0.7) Baso # (Auto) 0.01 (0.0-2.0) K/mm3 Absolute Neuts (auto) 8.14 H (1.4-6.5) PT 12.0 (9.4-12.5) SECONDS INR 1.08 APTT 27.9 (26.9-38.3) Seconds Sodium (132-148) mmol/L Potassium (3.6-5.0) mmol/L Chloride (98-107) mmol/L Carbon Dioxide (21-33) mmol/L Anion Gap (10-20) BUN (7-21) mg/dL Creatinine (0.7-1.2) mg/dl Est GFR ( Amer) Est GFR (Non-Af Amer) Random Glucose (70-110) mg/dL Calcium (8.4-10.5) mg/dL Total Bilirubin (0.2-1.3) mg/dL AST (14-36) U/L ALT (7-56) U/L Alkaline Phosphatase (38-126) U/L Troponin I ng/mL Total Protein (5.8-8.3) g/dL Albumin (3.0-4.8) g/dL Globulin gm/dL Albumin/Globulin Ratio (1.1-1.8) Triglycerides (35-160) mg/dL Cholesterol (130-200) mg/dL LDL Cholesterol Direct (0-129) mg/dL HDL Cholesterol (29-60) mg/dL Blood Type Blood Type Confirm Antibody Screen BBK History Checked Laboratory Results - last 24 hr 10/09/18 10/09/18 10/09/18 22:27 22:27 22:27 WBC 10.0 RBC 4.57 Hgb 12.9 Hct 39.6 MCV 86.7 MCH 28.2 MCHC 32.6 RDW 15.0 H Plt Count 247 MPV 8.8 Neut % (Auto) 81.7 H Lymph % (Auto) 13.3 L [place] % (Auto) 4.9 Eos % (Auto) 0.0 L Baso % (Auto) 0.1 Lymph # (Auto) 1.3 [place] # (Auto) 0.5 Eos # (Auto) 0.0 Baso # (Auto) 0.01 Absolute Neuts (auto) 8.14 H PT 12.0 INR 1.08 APTT 27.9 Sodium 138 Potassium 3.7 Chloride 100 Carbon Dioxide 24 Anion Gap 17 BUN 24 H Creatinine 0.8 Est GFR ( Amer) > 60 Est GFR (Non-Af Amer) > 60 Random Glucose 184 H Calcium 9.3 Total Bilirubin 0.3 AST 33 ALT 18 Alkaline Phosphatase 83 Troponin I < 0.01 Total Protein 7.3 Albumin 4.2 Globulin 3.1 Albumin/Globulin Ratio 1.3 Triglycerides 159 Cholesterol 138 LDL Cholesterol Direct 82 HDL Cholesterol 38 Blood Type Blood Type Confirm Antibody Screen BBK History Checked 10/09/18 10/10/18 22:52 00:13 WBC RBC Hgb Hct MCV MCH MCHC RDW Plt Count MPV Neut % (Auto) Lymph % (Auto) [place] % (Auto) Eos % (Auto) Baso % (Auto) Lymph # (Auto) [place] # (Auto) Eos # (Auto) Baso # (Auto) Absolute Neuts (auto) PT INR APTT Sodium Potassium Chloride Carbon Dioxide Anion Gap BUN Creatinine Est GFR ( Amer) Est GFR (Non-Af Amer) Random Glucose Calcium Total Bilirubin AST ALT Alkaline Phosphatase Troponin I Total Protein Albumin Globulin Albumin/Globulin Ratio Triglycerides Cholesterol LDL Cholesterol Direct HDL Cholesterol Blood Type O POSITIVE Blood Type Confirm O POSITIVE Antibody Screen Negative BBK History Checked No verified bt Radiology Impressions: Radiology Impressions Chest X-Ray 10/09/18 21:55 IMPRESSION: No active disease. No significant interval change compared to the prior examination(s). Head CT 10/09/18 21:55 IMPRESSION: No acute or significant findings related to/ accounting for the clinical presentation. Additional benign and/or incidental findings described above. No significant interval change compared to the prior examination(s). Study completed 22:00. Preliminary results available 22:18. Head/Neck CTA 10/09/18 23:13 IMPRESSION: No evidence of major intracranial arterial stenosis. No evidence of significant atherosclerotic narrowing of the carotid bifurcation vessels or cervical internal carotid arteries. This agrees with preliminary report. Head CT 10/10/18 09:00 IMPRESSION: No acute intracranial abnormalities. No significant findings to account for the clinical presentation. No significant interval change compared to the prior examination(s). EKG/Cardiology Studies: Cardiology / EKG Studies 10/09/18 21:55 ELECTROCARDIOGRAM Stat Comment: Reason For Exam: cva Critical Care Progress Note - Nutrition Nutrition: Nutrition Category Date Time Status Heart Healthy Diet [DIET] Diets 10/10/18 Lunch Active Addendum Addendum: 10/10/18 18:01 MICU Attending Addendum Patient seen and examined P[place] discussed with housestaff; agree with resident note above with the following additions/exceptions: 88F with PMH of mitral stenosis s/p mitral valve repair, pacemaker , paroxysmal atrial fibrillation, HTN, HLD presents with dysarthria and AMS CT head neg for bleed, s/p tpa I suspect eiology related to her afib (not on AC ) neuro on board clinically improved specifically in temrs of conginition and motor strength still has facial droop and dysarthria will likely need anticoagluation moving forward on asa and statin f/u echo and repeat ct head tomorrow speech swallow eval lipid panel pt ot transfer out of ICU 24 hours post-tpa Rest of care as in above resident note Diogenes Scott MD MICU Attending
--- NOTE | 2018-10-10 12:37 | CT ---
Date of service: 10/09/2018 PROCEDURE: CT HEAD WITHOUT CONTRAST. HISTORY: Code Stroke COMPARISON: 01/09/2016. TECHNIQUE: Axial computed tomography images were obtained through the head/brain without intravenous contrast. Supplemental Coronal and Sagittal projections created and reviewed. Radiation dose: Total exam DLP = 963.97 mGy-cm. This CT exam was performed using one or more of the following dose reduction techniques: Automated exposure control, adjustment of the mA and/or kV according to patient size, and/or use of iterative reconstruction technique. FINDINGS: HEMORRHAGE: No intracranial hemorrhage. BRAIN: No mass effect or edema. Age related senescent changes. VENTRICLES: Unremarkable. No hydrocephalus. CALVARIUM: Unremarkable. Hyperostotic changes primarily frontal bone common normal variant. Unchanged compared to the prior study 01/09/2016. PARANASAL SINUSES: Unremarkable as visualized. No significant inflammatory changes. MASTOID AIR CELLS: Unremarkable as visualized. No inflammatory changes. OTHER FINDINGS: None. IMPRESSION: No acute or significant findings related to/ accounting for the clinical presentation. Additional benign and/or incidental findings described above. No significant interval change compared to the prior examination(s). Study completed 22:00. Preliminary results available 22:18.
--- NOTE | 2018-10-10 15:49 | CT ---
Date of service: 10/10/2018 PROCEDURE: CT HEAD WITHOUT CONTRAST. HISTORY: r/o CVA COMPARISON: October 09, 2018. TECHNIQUE: Axial computed tomography images were obtained through the head/brain without intravenous contrast. Supplemental Coronal and Sagittal projections created and reviewed. Radiation dose: Total exam DLP = 984.34 mGy-cm. This CT exam was performed using one or more of the following dose reduction techniques: Automated exposure control, adjustment of the mA and/or kV according to patient size, and/or use of iterative reconstruction technique. FINDINGS: HEMORRHAGE: High sec [place] BRAIN: No mass effect or edema. Cortical and cerebellar atrophy, periventricular small vessel disease. VENTRICLES: Unremarkable. No hydrocephalus. CALVARIUM: Stable hyperostotic changes. PARANASAL SINUSES: Unremarkable as visualized. No significant inflammatory changes. MASTOID AIR CELLS: Unremarkable as visualized. No inflammatory changes. OTHER FINDINGS: None. IMPRESSION: No acute intracranial abnormalities. No significant findings to account for the clinical presentation. No significant interval change compared to the prior examination(s).
--- NOTE | 2018-10-10 16:35 | CT ---
Date of service: 10/10/2018 PROCEDURE: CT Angiography of the neck and brain with contrast. HISTORY: cva COMPARISON: CT head today TECHNIQUE: CT angiography of the neck and brain was performed. Coronal and sagittal maximum intensity projection reformated images were generated. Images were performed from the proximal aorta to the top of the skull. Radiation dose: Total exam DLP = 1200 DLP mGy-cm. This CT exam was performed using one or more of the following dose reduction techniques: Automated exposure control, adjustment of the mA and/or kV according to patient size, and/or use of iterative reconstruction technique. IV contrast dose: 200 milliliters, 1st dose did not adequately opacified due to patient breathing and motion. FINDINGS: INTERNAL CEREBRAL ARTERIES: Intracranial internal carotid arteries are patent without focal luminal narrowing or dissection. ICA bifurcation is within normal limits. No aneurysm is seen. ANTERIOR CEREBRAL ARTERIES: Unremarkable. A1 and A2 segments are widely patent. Smaller distal branches unremarkable, as visualized. MIDDLE CEREBRAL ARTERIES: Unremarkable. M1 and M2 segments are widely patent. Perisylvian branches grossly symmetric. POSTERIOR CIRCULATION: Basilar Artery: Congenitally small but patent Distal Vertebral Arteries: Patent Posterior Cerebral Arteries: Unremarkable. Posterior Inferior Cerebellar Arteries: Grossly patent. ANEURYSM/ VASCULAR MALFORMATIONS: None. RIGHT CAROTID ARTERIES: Common Carotid Artery: Mild atherosclerotic narrowing distally Carotid Bifurcation: Mild atherosclerotic plaque measuring approximately 20-30 percent stenosis Internal Carotid Artery:Mild atherosclerotic plaque although widely patent. There appears to be 20-30 percent luminal narrowing by NASCET criteria. External Carotid Artery (proximal branches): Mild atherosclerotic narrowing but patent. LEFT CAROTID ARTERIES: Common Carotid Artery: Mild atherosclerotic plaque distally Carotid Bifurcation: Mild left bulb plaque without significant atherosclerotic narrowing. Internal Carotid Artery:Mild atherosclerotic narrowing measuring less than 20-30 percent by NASCET criteria. Cervical left ICA is patent. External Carotid Artery (proximal branches): Mild atherosclerotic plaque. VERTEBRAL ARTERIES: Right Vertebral Artery: Tortuous but patent and without significant stenosis or dissection. Left Vertebral Artery: Tortuous but also grossly patent at its origin. Cervical left vertebral artery is patent to its intracranial region. Left vertebral artery is mildly dominant. OTHER FINDINGS: None. There is mild atherosclerotic change of the aorta without intimal flap or significant aneurysmal dilatation. There appears to be a common brachiocephalic trunk and origin of the common carotid arteries. Subclavian arteries appear patent. Thoracic inlet shows mild nonspecific heterogeneous density of the thyroid. Small scattered shotty mediastinal lymph nodes are identified throughout the mediastinum. Limited visualization of the proximal bronchi reveals some probable mild chronic appearing bronchial thickening in the proximal posterior lower lobe bronchi which may suggest some mild bronchitis. There is chronic interstitial changes seen in the lungs with some fibrotic changes noted. Visualized esophagus is unremarkable. No rib fractures are seen. No appreciable neck adenopathy is seen. Visualized parotid glands are unremarkable. No AVM is identified. Retro-orbital regions are unremarkable. There is mild mucosal changes seen in the sinuses. Mastoid air cells are unremarkable. There is moderate chronic hyperostosis frontalis interna. IMPRESSION: No evidence of major intracranial arterial stenosis. No evidence of significant atherosclerotic narrowing of the carotid bifurcation vessels or cervical internal carotid arteries. This agrees with preliminary report.
[2018-10-10] MEDS ORDERED: POLYETHYLENE GLYCOL 3350 17 GM/Dose PACKET PO ONE (18:27)
--- NOTE | 2018-10-10 19:49 | CON ---
DATE OF CONSULTATION: 10/10/2018 REASON FOR CONSULTATION: Acute stroke and history of mitral valve repair as well as permanent pacemaker placement. History was obtained from the patient's son at the bedside. HISTORY OF PRESENT ILLNESS: The patient is an 88-year-old female who has a history of mitral valve repair some 15 years ago at [facility] for mitral insufficiency. Has a history of permanent pacemaker placement some 10 years ago. Being followed by Dr. Berry in his office. She presented because of left-sided weakness and aphasia. The patient has no prior history of CVA. The patient was brought to the emergency room and code stroke was activated and the patient received thrombolytic therapy with regard to her neurological manifestations. The patient denies any chest pain or shortness of breath. There is no history of coronary intervention in the past. SOCIAL HISTORY: Nonsmoker and nondrinker. MEDICATIONS: Aspirin 81 mg once a day, albuterol inhaler every 6 hours, Lipitor 20 mg once a day, Protonix 40 mg twice a day, normal saline 100 mL an hour. REVIEW OF SYSTEMS: No dizziness or syncope. No retrosternal chest pain. According to the family, the oxygenator does not need to replaced and it may go on for few more years. PHYSICAL EXAMINATION: GENERAL: The patient is an elderly female who does not appears to be in any acute distress. VITAL SIGNS: Blood pressure 160/89, heart rate 61, temperature 98 degrees Fahrenheit, and respirations 20. HEENT: Normocephalic. CHEST: Clear. HEART: S1 and S2 regular. ABDOMEN: Soft. EXTREMITIES: No edema. LABORATORY DATA: Hemoglobin and hematocrit 12.9 and 39.6, white count and platelet count are within normal limits. PT/PTT and INR are within normal limits. SMA-7: Sodium is 138, potassium 3.7, chloride 100, CO2 of 24, glucose 184, BUN 24, and creatinine 0.8. One set of troponin is negative. Initial head CT scan without contrast, no acute or significant findings. Chest x-ray revealed cardiomegaly, mild CHF, and ventricular pacemaker. EKG revealed a ventricular paced rhythm at the rate of 64, underlying arrhythmias, and atrial fibrillation. The most recent echo was done in 09/2017, which revealed normal ejection fraction, mild aortic insufficiency, status post mitral valve repair with moderate mitral valve stenosis with a mitral valve area calculated at 1.1 cm2 with mild mitral insufficiency. ASSESSMENT: 1. Status post cerebrovascular accident, which improved after thrombolytic therapy. 2. Atrial fibrillation, most likely chronic one. 3. Status post mitral valve repair with residual moderate mitral stenosis and mild mitral insufficiency. 4. Hypertension. RECOMMENDATIONS: Continue aspirin 81 mg once a day, Lipitor 20 mg once a day, Protonix 40 mg intravenously daily, normal saline 100 mL an hour. Obtain bedside echocardiograph study. The patient is scheduled to undergo repeat head CT scan without contrast. MRI is contraindicated because of the patient's pacemaker, which she is dependent on. Wilton Ramos MD
[2018-10-11] MEDS: Albuterol-Ipratrop 3 mg / 0.5 (3 ml) UD IH SCH ×4 (01:59→20:30)
[2018-10-11 06:52] LABS: ALB/GLOB RATIO 1.1 (1.1-1.8); ALBUMIN 3.6 g/dL (3.0-4.8); ALT/SGPT 20 U/L (7-56); AST/SGOT 30 U/L (14-36); BLOOD UREA NITROGEN 15 mg/dL (7-21); CALCIUM 9.2 mg/dL (8.4-10.5); GFR NON-AFRICAN AMERICAN > 60; HDL CHOLESTEROL 36 mg/dL (29-60)
[2018-10-11 07:01] LABS: LDL CHOLESTEROL 75 mg/dL (0-129)
[2018-10-11 07:07] LABS: FREE T4 1.15 ng/dL (0.78-2.19)
[2018-10-11 07:19] LABS: HEMOGLOBIN 12.5 g/dL (12.0-16.0); LYMPH # 1.3 (1.2-3.4); LYMPH % 11.6 % (22.0-35.0); MEAN CELL VOLUME 87.5 fl (80.0-105.0); MEAN CORPUSCULAR HEMOGLOBIN 28.4 pg (25.0-35.0); MEAN CORPUSCULAR HGB CONC 32.5 g/dl (31.0-37.0); MEAN PLATELET VOLUME 9.2 fl (7.0-11.0); MONO # 0.4 (0.1-0.6); MONO % 3.3 % (1.0-6.0); RBC 4.4 10^6/uL (3.5-6.1); RED CELL DISTRIBUTION WIDTH 15.4 % (11.5-14.5); WHITE BLOOD COUNT 11.2 10^3/uL (4.5-11.0)
[2018-10-11 07:35] LABS: PH,URINE 7.5 (4.7-8.0); URINE BILIRUBIN NEGATIVE (NEGATIVE); URINE BLOOD NEGATIVE (NEGATIVE); URINE GLUCOSE (UA) NEGATIVE (NEGATIVE); URINE LEUKOCYTE ESTERASE NEGATIVE Leu/uL (NEGATIVE); URINE PROTEIN NEGATIVE mg/dL (<30 mg/dL); URINE UROBILINOGEN 0.2 E.U./dL (<1 E.U./dL)
[2018-10-11 07:41] LABS: URINE APPEARANCE CLEAR (CLEAR); URINE COLOR YELLOW (YELLOW)
--- NOTE | 2018-10-11 12:09 | US ---
PROCEDURE: Bilateral carotid artery duplex ultrasound HISTORY: carotid stenosis PHYSICIAN(S): Teodoro Oliver MD. TECHNIQUE: Duplex sonography and color-flow Doppler were used to evaluate the carotid bifurcations and limited segments of the vertebral arteries bilaterally. FINDINGS: The exam is limited by tortuous vessels and body habitus There is mild smooth heterogeneous plaque noted at the carotid bifurcations bilaterally. The peak systolic velocity in the proximal right internal carotid artery is 101 cm/sec. This corresponds to a 20 to 39% proximal right ICA stenosis. Normal systolic velocities are noted in the proximal right external carotid artery. There is antegrade flow in the small right vertebral artery. The peak systolic velocity in the proximal left internal carotid artery is 71 cm/sec. This corresponds to a 20 to 39% proximal left ICA stenosis. Normal systolic velocities are noted in the proximal left external carotid artery. The left vertebral artery is not visualized and may be occluded IMPRESSION: 1. Bilateral 20-39% proximal ICA stenoses. 2. Antegrade flow in the right vertebral artery. The left vertebral artery is not visualized and may be occluded 3. Limited study
[2018-10-11 12:37] LABS: FOLATE 11.9 ng/mL
--- NOTE | 2018-10-11 20:37 | PN ---
DATE: 10/11/2018 SUBJECTIVE: The patient has no complaints of any chest pain. No shortness of breath. No headaches. PHYSICAL EXAMINATION: VITAL SIGNS: Temperature is 97.9, pulse of 61, blood pressure 120/63 and respirations 20. GENERAL: The patient is lying in bed, flat, comfortable. HEENT: No oral lesion. Anicteric sclerae. Moist mucosa. NECK: No JVD, adenopathy, or thyromegaly. CARDIOVASCULAR: S1 and S2, regular. No murmurs, rubs, or gallops. LUNGS: Clear to auscultation bilaterally. No wheeze, rales, or rhonchi. ABDOMEN: Bowel sounds are positive, soft, nontender and nondistended. EXTREMITIES: No cyanosis, clubbing or edema. On the left arm there is 4 to 5/5 power, on the left leg there is about 5/5 power. LABORATORY DATA: White count of 11.2 and hemoglobin 12.5. Creatinine is 0.5. A carotid ultrasound shows bilateral 20% to 39% proximal ICA stenosis and antegrade flow in the right vertebral artery. The left vertebral artery is not visualized and may be occluded. ASSESSMENT: 1. 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 2. Atrial fibrillation. 3. Mitral valve replacement. 4. Cerebrovascular accident of probable right middle cerebral artery territory. 5. Hypertension. 6. Obese with a body mass index of 32. PLAN: The patient is currently on aspirin. She is going to be started on Eliquis for her anticoagulation. She has atrial fibrillation. The patient is on prednisone daily. She is on Protonix for GI prophylaxis. She is receiving antibiotics with azithromycin. She has an echo that has been ordered. She remains in the ICU. I did speak to the patient's son at the bedtime. Ras Brunson MD
--- NOTE | 2018-10-11 22:30 | PN ---
DATE: 10/11/2018 SUBJECTIVE: The patient has no difficulty swallowing or articulating her speech. No arm or leg weakness and no chest pain. OBJECTIVE: VITAL SIGNS: Blood pressure 120/60, heart rate 78, temperature 97.9, respirations 20. HEENT: Normocephalic. CHEST: Clear. HEART: S1, S2 regular. EXTREMITIES: Trace leg edema. LABORATORY DATA: Hemoglobin and Hematocrit 12.5 and 38.5, white count 11.2 platelet count 276,000. SMA-7; sodium 138, potassium 4.4, chloride 105, CO2 of 26, glucose 134, BUN 15, creatinine 0.5. The most recent echo in September of last year revealed mild LVH with normal ejection fraction with moderate mitral valve stenosis and mild mitral insufficiency as well as moderate pulmonary hypertension. ASSESSMENT: 1. Status post cerebrovascular accident requiring thrombolytic therapy. 2. Atrial fibrillation. 3. Status post mitral valve repair, repair with residual mitral stenosis with residual mild mitral insufficiency with moderate mitral stenosis. 4. Systemic hypertension. 5. Moderate pulmonary hypertension. RECOMMENDATIONS: I did review the repeat head CT scan finding which revealed no acute intracranial abnormality, no interval change. I agree with starting Eliquis at 2.5 mg twice a day. Continue aspirin 81 mg once a day, Lipitor 40 mg once a day, Protonix 40 mg intravenous once a day, prednisone 20 mg twice a day and Zithromax 250 mg orally daily. Wilton Ramos MD
[2018-10-12] MEDS: Albuterol-Ipratrop 3 mg / 0.5 (3 ml) UD IH SCH ×3 (01:55→20:40)
--- NOTE | 2018-10-12 09:47 | HP ---
DATE OF EXAM: 10/10/2018 HISTORY OF PRESENT ILLNESS: The patient is 88 years old female. She was seen in February last week for cough and congestion. She was given antibiotic with some decongestant. The patient's family noted yesterday. She was lying in bed; complained of feeling little weak and has slight headache. Daughter went to do some house chores and she came back and she was trying to engage mom in conversation. She found like she was stuttering in her speech and whatever she was talking did not make sense. She called other family members, they called ambulance and she was brought to emergency room. When she was brought to ER, she was getting TPA, so she was given TPA while in ER and admitted in ICU for further monitoring. PAST MEDICAL HISTORY: She has significant past medical history of; 1. Hypertension. 2. History of anxiety disorder. 3. History of pacemaker placement. 4. History of mitral stenosis, status post mitral valve repair. 5. Hyperlipidemia. 6. History of depression. ALLERGIES: SHE IS NOT ALLERGIC WITH ANY MEDICATION. MEDICATIONS AT HOME: She is on Aricept 10 mg daily, amlodipine 5 mg daily, 100 mg daily, atorvastatin 10 mg daily, aspirin 81 mg daily, and antibiotic 25 t.i.d. p.r.n. SOCIAL HISTORY: She is single, lives with her daughter who is very caring. No history of smoking; alcohol use in the past. PHYSICAL EXAMINATION: GENERAL: She is fully awake, alert, oriented, able to communicate; recognized my name. She was very excited to see me. Her speech seems to be better according to family. VITAL SIGNS: She is afebrile, pulse 64, respiration 21, and blood pressure 160/80. LUNGS: Bilateral fair airflow. No rhonchi or crackle. HEART: S1 and S2 audible. ABDOMEN: Soft and nontender. No rebound. No guarding. NEUROLOGIC: She is awake, alert, oriented, and communicative; able to move all extremities. LABORATORY DATA: WBC 10, hemoglobin 12.9, hematocrit 39.6, and platelets of 247. PT 12.0 and INR 1.08. Chemistry; sodium 138, potassium 3.7, chloride 100, CO2 of 24, BUN 24, creatinine 0.8, and blood sugar of 184. Her CT is pending. CT scan of the head unremarkable. ASSESSMENT: 1. Cerebrovascular accident with expressive dysphagia. 2. History of mitral stenosis, status post valve replacement . 3. Status post pacemaker placement. 4. Hypertension. 5. Hyperlipidemia. PLAN: We will continue the patient on Protonix. She is on aspirin. I will order for carotid Doppler. We will start her on statins. Out of bed to chair. Physical therapy evaluation has been requested. Chang Rutherford MD
--- NOTE | 2018-10-12 14:03 | CP.PCM.PN ---
Subjective - Date & Time of Evaluation Date of Evaluation: 10/12/18 Time of Evaluation: 06:00 - Subjective Subjective: Patient seen and examined bedside in ICU. Following commands but Patient still has expressive aphasia. no acute issues overnight. Objective - Vital Signs/Intake and Output Vital Signs (last 24 hours): Temp Pulse Resp BP Pulse Ox 98.3 F 61 20 120/65 98 10/12/18 04:00 10/12/18 06:00 10/12/18 04:20 10/12/18 04:00 10/12/18 04:20 Intake and Output: 10/12/18 10/12/18 06:59 18:59 Intake Total 120 100 Output Total 700 Balance -580 100 - Medications Medications: Current Medications Albuterol/Ipratropium (Duoneb 3 Mg/0.5 Mg (3 Ml) Ud) 3 ml IH [id number] [facility] Last Admin: 10/12/18 08:05 Dose: 3 ml Amlodipine Besylate (Norvasc) 5 mg PO DAILY [facility] Last Admin: 10/12/18 10:07 Dose: 5 mg Apixaban (Eliquis) 2.5 mg PO BID [facility]; Protocol Last Admin: 10/12/18 10:06 Dose: 2.5 mg Aspirin (Aspirin Chewable) 81 mg PO DAILY [facility] Last Admin: 10/12/18 10:06 Dose: 81 mg Atorvastatin Calcium (Lipitor) 40 mg PO DIN [facility] Last Admin: 10/11/18 17:03 Dose: 40 mg Azithromycin (Zithromax) 250 mg PO DAILY [facility]; Protocol Stop: 10/14/18 23:59 Last Admin: 10/12/18 10:07 Dose: 250 mg Guaifenesin (Robitussin) 100 mg PO Q4H PRN PRN Reason: Cough Pantoprazole Sodium (Protonix Ec Tab) 40 mg PO ACB [facility] Prednisone (Prednisone Tab) 20 mg PO BID [facility] Stop: 10/12/18 23:59 Last Admin: 10/12/18 10:07 Dose: 20 mg - Labs Labs: 10/11/18 06:00 10/11/18 06:00 PT 12.0 SECONDS (9.4-12.5) 10/09/18 22:27 INR 1.08 10/09/18 22:27 APTT 27.9 Seconds (26.9-38.3) 10/09/18 22:27 - Constitutional Appears: Non-toxic, No Acute Distress - Head Exam Head Exam: ATRAUMATIC, NORMAL INSPECTION, NORMOCEPHALIC - Eye Exam Eye Exam: EOMI, Normal appearance - ENT Exam ENT Exam: Mucous Membranes Moist - Respiratory Exam Respiratory Exam: Clear to Ausculation Bilateral, NORMAL BREATHING PATTERN - Cardiovascular Exam Cardiovascular Exam: +S1, +S2 - GI/Abdominal Exam GI & Abdominal Exam: Soft - Neurological Exam Neurological Exam: Alert, Awake, Oriented x3, Reflexes Normal Neuro motor strength exam: Left Upper Extremity: 4, Right Upper Extremity: 4, Left Lower Extremity: 4, Right Lower Extremity: 4 Additional comments: expressive aphasia, able to follow commands, cerebellar function in tact, no motor strength deficit Assessment and Plan - Assessment and Plan (Free Text) Plan: Ischemic stroke likely due to embolic etiology considering the history of atrial fibrillation and mitral valve replacement. She is unable to obtain MRI due to pacemaker. Plan -PT/OT eval and treatment -Post-tPA blood pressure parameters -Echocardiogram -Lipid panel, HbA1c, B12, folate, TSH, Vitamin D level -Lipitor 40 mg daily -Carotid US negative -Case management consult -continue to monitor mental status
--- NOTE | 2018-10-12 18:46 | CARD ---
APPROVED REPORT Date of service: 10/12/2018 EXAM: Two-dimensional and M-mode echocardiogram with Doppler and color Doppler. INDICATION BUBBLE STUDY 2D DIMENSIONS Left Atrium (2D)4.4 (1.6-4.0cm)IVSd1.1 (0.7-1.1cm) LVDd4.1 (3.9-5.9cm)PWd1.2 (0.7-1.1cm) LVDs2.8 (2.5-4.0cm)FS (%) 32.0 % LVEF (%)60.7 (>50%) M-Mode DIMENSIONS Aortic Root2.90 (2.2-3.7cm)Aortic Cusp Exc.1.80 (1.5-2.0cm) Aortic Valve AoV Peak Lxaacodr087.0cm/Gee Peak GR.8mmHg Mitral Valve MV [id number] ratio0.0MVA (PHT)1.00cm2 TDI E/Lateral E'0.0E/Medial E'0.0 Tricuspid Valve TR Peak [id number] [id number] Peak Gr.32mmHg [id number] LEFT VENTRICLE The left ventricle is normal size. There is borderline concentric left ventricular hypertrophy. The left ventricular function is normal.EF-55-60% There is normal LV segmental wall motion. Afib No left ventricle thrombus noted on this study. There is no ventricular septal defect visualized. There is no left ventricular aneurysm. There is no mass noted in the left ventricle. RIGHT VENTRICLE The right ventricle is mildly dilated. There is normal right ventricular wall thickness. Systolic function of RV is mildly to moderately reduced. There is a pacemaker lead in the right ventricle. ATRIA The left atrium is mildly dilated. The right atrium is mildly dilated. There is a catheter/pacemaker lead seen in the right atrium. The interatrial septum is intact with no evidence for an atrial septal defect., By colr flow and bubble study. AORTIC VALVE The aortic valve is thickened but opens well. There is trace aortic regurgitation. There is no aortic valvular stenosis. There is no aortic valvular vegetation. MITRAL VALVE Mitral regurgitation is trace. There is moderate to severe mitral valve stenosis.MVA-1.0 cm2, S/p MV repair, restenosis. S/p MV repair with EC Ring TRICUSPID VALVE The tricuspid valve leaflets are thickened , but open well. There is moderate tricuspid regurgitation.RVSP-42 mmof Hg. There is no tricuspid valve stenosis. There is no tricuspid valve prolapse or vegetation. PULMONIC VALVE The pulmonary valve is normal in structure. There is mild pulmonic valvular regurgitation. There is no pulmonic valvular stenosis. GREAT VESSELS The aortic root is normal in size. The ascending aorta is normal in size. The pulmonary artery is normal. The IVC is normal in size and collapses >50% with inspiration. PERICARDIAL EFFUSION There is no pleural effusion. There is no pericardial effusion. <Conclusion> The left ventricle is normal size. There is borderline concentric left ventricular hypertrophy. The left ventricular function is normal.EF-55-60% The right ventricle is mildly dilated. Systolic function of RV is mildly to moderately reduced. There is trace aortic regurgitation. Mitral regurgitation is trace. There is moderate to severe mitral valve stenosis.MVA-1.0 cm2, S/p MV repair, restenosis. S/p MV repair with EC Ring There is moderate tricuspid regurgitation.RVSP-42 mmof Hg. The interatrial septum is intact with no evidence for an atrial septal defect., By colr flow and bubble study. PPM lead noted in RA/RV. no Vegetation or thrombus noted.
[2018-10-12] MEDS: guaiFENesin 100 mg/5 ml Syrup UD PO PRN (22:05)
[2018-10-13] MEDS: Albuterol-Ipratrop 3 mg / 0.5 (3 ml) UD IH SCH ×4 (01:02→19:16)
[2018-10-13] MEDS: Pantoprazole 40 mg EC Tab PO SCH (07:58)
--- NOTE | 2018-10-13 08:09 | PN ---
DATE: 10/12/2018 REASON FOR CONSULTATION: Followup status post acute CVA, status post thrombolytics, history of atrial fibrillation, history of pacemaker, status post MV repair in the past. The patient's daughter and son are at the bedside. Denies any shortness of breath. No palpitation. On the right side, there is facial droop noted. PHYSICAL EXAMINATION: GENERAL: Not in apparent distress. Right facial droop noted. VITAL SIGNS: Temperature afebrile, heart rate 60, blood pressure 120/65. HEENT: PERRLA. Extraocular muscles intact. NECK: Supple. No carotid bruits. No thyromegaly. CHEST: Clear to auscultation. HEART: S1 and S2 regular. ABDOMEN: Soft. EXTREMITIES: Clubbing and cyanosis negative. LABORATORY DATA: WBC 11.2, hemoglobin 12.5, hematocrit 38.5, and platelet count 276. Chemistries show sodium 138, potassium 4.4, chloride 105, carbon dioxide of 26, anion gap of 11, BUN 15, and creatinine 0.5. TSH 1.07, triglyceride 122, cholesterol 134, LDL 75, and HDL 36. IMPRESSION: An 88-year-old female with past medical history significant for history of atrial fibrillation, not on anticoagulation in view of high risks of falls, history of permanent pacemaker, history of mitral stenosis status post mitral valve repair, hyperlipidemia, history of severe mitral regurgitation status post mitral valve repair, mitral stenosis from the prosthetic valve, and hypertension, admitted with acute cerebrovascular accident, status post TPA was given. Now is awake and alert. No residual weakness noted. RECOMMENDATIONS: We will get an echo to see ejection fraction . Continue aspirin. We will start low dose of Eliquis. Followup neurological recommendation. We will get an echo to assess LV function. We will follow with you. Continue atorvastatin. Discussed with the son and daughter. Raul Berry MD
--- NOTE | 2018-10-13 13:20 | CP.PCM.PN ---
<[place] - Last Filed: 10/13/18 15:28> Subjective - Date & Time of Evaluation Date of Evaluation: 10/13/18 Time of Evaluation: 06:00 - Subjective Subjective: Patient seen and examined bedside in AM, no acute issues overnight. Patients aphasia improving. answering questions appropriately Objective - Vital Signs/Intake and Output Vital Signs (last 24 hours): Temp Pulse Resp BP Pulse Ox 97.7 F 61 24 100/54 L 97 10/13/18 09:00 10/13/18 11:30 10/13/18 11:30 10/13/18 11:00 10/13/18 11:30 Intake and Output: 10/13/18 10/13/18 06:59 18:59 Intake Total 250 240 Balance 250 240 - Medications Medications: Current Medications Albuterol/Ipratropium (Duoneb 3 Mg/0.5 Mg (3 Ml) Ud) 3 ml IH [id number] [facility] Last Admin: 10/13/18 08:26 Dose: 3 ml Amlodipine Besylate (Norvasc) 5 mg PO DAILY [facility] Last Admin: 10/13/18 09:56 Dose: 5 mg Apixaban (Eliquis) 2.5 mg PO BID [facility]; Protocol Last Admin: 10/13/18 09:55 Dose: 2.5 mg Atorvastatin Calcium (Lipitor) 40 mg PO DIN [facility] Last Admin: 10/12/18 17:34 Dose: 40 mg Azithromycin (Zithromax) 250 mg PO DAILY [facility]; Protocol Stop: 10/14/18 23:59 Last Admin: 10/13/18 09:54 Dose: 250 mg Guaifenesin (Robitussin) 100 mg PO Q4H PRN PRN Reason: Cough Last Admin: 10/12/18 22:05 Dose: 100 mg Pantoprazole Sodium (Protonix Ec Tab) 40 mg PO ACB [facility] Last Admin: 10/13/18 07:58 Dose: 40 mg - Labs Labs: 10/11/18 06:00 10/11/18 06:00 PT 12.0 SECONDS (9.4-12.5) 10/09/18 22:27 INR 1.08 10/09/18 22:27 APTT 27.9 Seconds (26.9-38.3) 10/09/18 22:27 - Constitutional Appears: Non-toxic, No Acute Distress - Head Exam Head Exam: ATRAUMATIC, NORMAL INSPECTION, NORMOCEPHALIC - ENT Exam ENT Exam: Mucous Membranes Moist - Respiratory Exam Respiratory Exam: Clear to Ausculation Bilateral, NORMAL BREATHING PATTERN - Cardiovascular Exam Cardiovascular Exam: REGULAR RHYTHM, +S1, +S2 - Neurological Exam Neurological Exam: Alert, Awake, CN II-XII Intact, Oriented x3 Neuro motor strength exam: Left Upper Extremity: 4, Right Upper Extremity: 4, Left Lower Extremity: 4, Right Lower Extremity: 4 Assessment and Plan - Assessment and Plan (Free Text) Assessment: Ischemic stroke likely due to embolic etiology considering the history of atrial fibrillation and mitral valve replacement. She is unable to obtain MRI due to pacemaker. Plan: Ischemic Stroke -improving -PT/OT eval and treatment -Lipitor 40 mg daily -Carotid US negative -Case management consult -continue to monitor mental status <Erika Perez - Last Filed: 10/13/18 16:15> Objective - Vital Signs/Intake and Output Vital Signs (last 24 hours): Temp Pulse Resp BP Pulse Ox 97.7 F 61 24 100/54 L 97 10/13/18 09:00 10/13/18 11:30 10/13/18 11:30 10/13/18 11:00 10/13/18 11:30 Intake and Output: 10/13/18 10/13/18 06:59 18:59 Intake Total 250 240 Balance 250 240 - Medications Medications: Current Medications Albuterol/Ipratropium (Duoneb 3 Mg/0.5 Mg (3 Ml) Ud) 3 ml IH [id number] [facility] Last Admin: 10/13/18 14:03 Dose: 3 ml Amlodipine Besylate (Norvasc) 5 mg PO DAILY [facility] Last Admin: 10/13/18 09:56 Dose: 5 mg Apixaban (Eliquis) 2.5 mg PO BID [facility]; Protocol Last Admin: 10/13/18 09:55 Dose: 2.5 mg Atorvastatin Calcium (Lipitor) 40 mg PO DIN [facility] Last Admin: 10/12/18 17:34 Dose: 40 mg Azithromycin (Zithromax) 250 mg PO DAILY [facility]; Protocol Stop: 10/14/18 23:59 Last Admin: 10/13/18 09:54 Dose: 250 mg Guaifenesin (Robitussin) 100 mg PO Q4H PRN PRN Reason: Cough Last Admin: 10/12/18 22:05 Dose: 100 mg Pantoprazole Sodium (Protonix Ec Tab) 40 mg PO ACB [facility] Last Admin: 10/13/18 07:58 Dose: 40 mg - Labs Labs: 10/11/18 06:00 10/11/18 06:00 PT 12.0 SECONDS (9.4-12.5) 10/09/18 22:27 INR 1.08 10/09/18 22:27 APTT 27.9 Seconds (26.9-38.3) 10/09/18 22:27 Assessment and Plan - Assessment and Plan (Free Text) Assessment: All medical record entries made by the Resident were at my direction and personally dictated by me. I have reviewed the chart and agree that the record accurately reflects my personal performance of the history, physical exam, medical decision making, and the department course for this patient. I have also personally directed, reviewed, and agree with the discharge instructions and disposition. 88 yr old woman with a left frontal stroke, with pmh of afib and MVR, who is now doing better. Stroke workup is underway, with NIHSS being 1. She is now on aspirin and plavix. Plan: 1. Speech therapy 2. ECHO 3. PT OT Our team will follow Dr Perez
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
--- NOTE | 2018-10-13 21:03 | CARD ---
APPROVED REPORT Date of service: 10/13/2018 EKG Measurement Heart [id number] <Conclusion> Electronic ventricular pacemaker
--- NOTE | 2018-10-13 22:13 | PN ---
DATE: 10/13/2018 SUBJECTIVE: The patient is 88 years old, seen and examined, not eating that well, has scanty cough. PHYSICAL EXAMINATION: VITAL SIGNS: She is afebrile, pulse 64, respirations 18, and blood pressure 100/59. LUNGS: Bilateral fair airflow. No rhonchi or crackle. HEART: S1 and S2 audible. ABDOMEN: Soft and nontender. No rebound. No guarding. NEUROLOGIC: She is awake and alert, able to communicate. According to family, she has generalized weakness but her speech is back to her normal. ASSESSMENT: 1. Status post episode of slurred speech, status post TPA. 2. History of severe mitral regurgitation and stenosis, status post mitral valve repair. 3. Paroxysmal atrial fibrillation. 4. Status post pacemaker placement because of sick sinus syndrome and attack of dizziness. 5. History of depression. PLAN: The patient is being transferred to telemetry. I will continue her on statin. She is on Eliquis. Encourage ambulation, out of bed to chair. Depending on her performance status it will be decided for her subacute rehab. In the meantime, we will continue the patient on Protonix, continue statin, and she is on Eliquis. We will follow up this patient in a.m. Chang Rutherford MD
[2018-10-14] MEDS: Albuterol-Ipratrop 3 mg / 0.5 (3 ml) UD IH SCH ×4 (01:02→19:10)
[2018-10-14 07:15] LABS: BASO # 0.01 K/mm3 (0.0-2.0); BASO % 0.1 % (0.0-3.0); EOS # 0.2 (0.0-0.7); HEMOGLOBIN 13.1 g/dL (12.0-16.0); MEAN CELL VOLUME 86.7 fl (80.0-105.0); MEAN CORPUSCULAR HEMOGLOBIN 28.1 pg (25.0-35.0); MEAN CORPUSCULAR HGB CONC 32.4 g/dl (31.0-37.0); MEAN PLATELET VOLUME 8.7 fl (7.0-11.0); MONO # 0.5 (0.1-0.6); MONO % 5.5 % (1.0-6.0); RBC 4.66 10^6/uL (3.5-6.1); RED CELL DISTRIBUTION WIDTH 15.7 % (11.5-14.5); WHITE BLOOD COUNT 9.2 10^3/uL (4.5-11.0)
[2018-10-14 07:31] LABS: LDL CHOLESTEROL 67 mg/dL (0-129)
[2018-10-14 07:50] LABS: ALBUMIN 3.3 g/dL (3.0-4.8); ALT/SGPT 18 U/L (7-56); AST/SGOT 29 U/L (14-36); BLOOD UREA NITROGEN 24 mg/dL (7-21); CALCIUM 9.5 mg/dL (8.4-10.5); GFR NON-AFRICAN AMERICAN > 60; HDL CHOLESTEROL 41 mg/dL (29-60)
--- NOTE | 2018-10-14 09:28 | CP.PCM.PN ---
Subjective - Date & Time of Evaluation Date of Evaluation: 10/14/18 Time of Evaluation: 05:00 - Subjective Subjective: Patient seen and evaluated bedside. No acute issues overnight. Aphasia minimal, doing well denies any headaches, weakness, numbness, tingling. Objective - Vital Signs/Intake and Output Vital Signs (last 24 hours): Temp Pulse Resp BP Pulse Ox 98.3 F 62 20 107/70 94 L 10/14/18 06:00 10/14/18 06:00 10/14/18 06:00 10/14/18 06:00 10/14/18 06:00 Intake and Output: 10/14/18 10/14/18 06:59 18:59 Intake Total 240 Output Total 800 Balance -560 - Medications Medications: Current Medications Albuterol/Ipratropium (Duoneb 3 Mg/0.5 Mg (3 Ml) Ud) 3 ml IH [id number] [facility] Last Admin: 10/14/18 07:35 Dose: 3 ml Amlodipine Besylate (Norvasc) 5 mg PO DAILY [facility] Last Admin: 10/13/18 09:56 Dose: 5 mg Apixaban (Eliquis) 2.5 mg PO BID [facility]; Protocol Last Admin: 10/13/18 18:33 Dose: 2.5 mg Atorvastatin Calcium (Lipitor) 40 mg PO DIN [facility] Last Admin: 10/13/18 18:33 Dose: 40 mg Azithromycin (Zithromax) 250 mg PO DAILY [facility]; Protocol Stop: 10/14/18 23:59 Last Admin: 10/13/18 09:54 Dose: 250 mg Guaifenesin (Robitussin) 100 mg PO Q4H PRN PRN Reason: Cough Last Admin: 10/12/18 22:05 Dose: 100 mg Pantoprazole Sodium (Protonix Ec Tab) 40 mg PO ACB [facility] Last Admin: 10/13/18 07:58 Dose: 40 mg - Labs Labs: 10/14/18 06:50 10/14/18 06:50 PT 12.0 SECONDS (9.4-12.5) 10/09/18 22:27 INR 1.08 10/09/18 22:27 APTT 27.9 Seconds (26.9-38.3) 10/09/18 22:27 - Constitutional Appears: Well, Non-toxic, No Acute Distress - Head Exam Head Exam: ATRAUMATIC, NORMAL INSPECTION, NORMOCEPHALIC - Eye Exam Eye Exam: EOMI, Normal appearance - ENT Exam ENT Exam: Mucous Membranes Moist - Respiratory Exam Respiratory Exam: Clear to Ausculation Bilateral, NORMAL BREATHING PATTERN - Cardiovascular Exam Cardiovascular Exam: REGULAR RHYTHM - Neurological Exam Neurological Exam: Alert, Awake, Oriented x3 Neuro motor strength exam: Left Upper Extremity: 4, Right Upper Extremity: 4, Left Lower Extremity: 4, Right Lower Extremity: 4 Assessment and Plan - Assessment and Plan (Free Text) Assessment: Ischemic stroke likely due to embolic etiology considering the history of atrial fibrillation and mitral valve replacement. Plan: Ischemic Stroke -improving -PT/OT eval and treatment -Lipitor 40 mg daily -Carotid US negative -Case management consult -continue to monitor mental status
[2018-10-14] MEDS: Pantoprazole 40 mg EC Tab PO SCH (10:04)
--- NOTE | 2018-10-14 10:42 | PN ---
DATE: 10/14/2018 REASON FOR CONSULTATION AND FOLLOWUP: Acute CVA, status post thrombolytics, history of atrial fibrillation, history of pacemaker, status post MV repair in the past. SUBJECTIVE: The patient denied any chest pain, shortness of breath or any palpitations. The family and daughter are at the bedside. PHYSICAL EXAMINATION: VITAL SIGNS: Temperature afebrile, heart rate 60, and blood pressure 107/70. HEENT: PERRLA. Extraocular muscles are intact. NECK: Supple. No carotid bruits. No thyromegaly. CHEST: Clear to auscultation. HEART: S1 and S2 regular. ABDOMEN: Soft. EXTREMITIES: Clubbing and cyanosis negative. LABORATORY DATA: WBC 9.8, hemoglobin 13.8, hematocrit 40.4, platelet count 323. Chemistry showed sodium 141, potassium 4, chloride 108, carbon dioxide 28, anion gap of 9, BUN 24, and creatinine 0.8. Total protein 6.5, albumin 3.1 albumin globulin ratio 1, triglycerides 164, cholesterol 132, LDL 67, HDL 41, TSH 1.07. The patient had an echocardiography done yesterday that revealed ejection fraction of about 60%. RV moderately dilated. Trace mitral regurgitation, moderate to severe mitral valve area of 1 cm2. Status post MV repair, restenosis of the repair. Moderate tricuspid regurgitation, RV systolic pressure 52. Interatrial septum is intact by color flow and bubble study. The patient had yesterday EKG done that shows V-paced rhythm, underlying AFib. RECOMMENDATIONS: The patient is on Eliquis 2.5 p.o. b.i.d. Continue atorvastatin. Continue amlodipine. Rehab physical therapy evaluation, out of bed to chair. Discussed with the patient's family. We will follow with you. The patient is off aspirin because of risk of bleed. The patient is already on Eliquis. Family is very much concerned about bleeding into the brain and they were very nervous. I explained to the patient. Thank you Dr. Rutherford for providing us the opportunity in taking care of patient, Sayda Ramirez. Raul Berry MD [facility] # [id number]
--- NOTE | 2018-10-14 10:47 | PN ---
DATE: 10/12/2018 SUBJECTIVE: The patient is 88-year-old, seen and examined sitting in chair. Seems to be much comfortable. More verbal, able to express herself. No nausea and vomiting. No diarrhea. Eating fair. PHYSICAL EXAMINATION: VITAL SIGNS: She is afebrile. Pulse 61, respiration 20 and blood pressure 120/65. LUNGS: Bilateral fair airflow. No rhonchi or crackle. HEART: S1 and S2, audible. ABDOMEN: Soft and nontender. No rebound. No guarding. NEUROLOGIC: The patient is awake, alert and able to communicate. Seems to be nonfocal. However, she has generalized weakness. ASSESSMENT: 1. Status post cerebrovascular accident with the slurred speech that has almost 100% resolved. 2. Left vertebral artery occlusion. 3. Paroxysmal atrial fibrillation. 4. Status post mitral valve replacement. 5. Hypertension. 6. Hyperlipidemia. 7. History of anxiety disorder. PLAN: The patient is currently on aspirin 81 mg daily. She is getting nebulizer treatment. She has been started on Eliquis. She is on Lipitor. Blood pressure is being monitored. She has GI prophylaxis. She is on Zithromax because she was being treated for bronchitis as outpatient. Chang Rutherford MD
--- NOTE | 2018-10-14 20:38 | DS ---
HISTORY OF PRESENT ILLNESS: She is 88 years old, seen and examined. Seems to be much more awake, alert and communicative. PHYSICAL EXAMINATION: VITAL SIGNS: She is afebrile. Pulse 60, respiration 20 and blood pressure 96/57. LUNGS: Bilateral fair airflow. No rhonchi or crackle. HEART: S1 and S2, audible. Has pacemaker in place. ABDOMEN: Soft and nontender. No rebound. No guarding. NEUROLOGIC: She is awake, alert and able to communicate. LABORATORY DATA: WBC is 9.2, hemoglobin 13, hematocrit 40.4 and platelet of 326. Chemistry; sodium 141, potassium 4.1, chloride 108, CO2 of 28, BUN 24, creatinine 0.8 and blood sugar of 66. Vitamin D is 21.7. Urinalysis is unremarkable. ASSESSMENT: 1. Status post episode of dysphagia, status post tPA. 2. Paroxysmal atrial fibrillation. 3. History of depression, but seems to be stable. 4. Status post mitral valve repair. PLAN: The patient is currently on Eliquis. She is on Lipitor. She is on amlodipine, Protonix and p.o. Zithromax. Workers Compensation Administrator are making arrangements for the patient to be transferred to [facility] and probably she will be going to [place]. Chang Rutherford MD
--- NOTE | 2018-10-14 22:11 | CARD ---
APPROVED REPORT Date of service: 10/14/2018 EKG Measurement Heart [id number] <Conclusion> Electronic ventricular pacemaker No atrial activity seen- probably atrial fibrillation
[2018-10-15] MEDS: Albuterol-Ipratrop 3 mg / 0.5 (3 ml) UD IH SCH ×2 (01:00→07:12)
[2018-10-15] MEDS: Pantoprazole 40 mg EC Tab PO SCH (09:10)
[2018-10-15] MEDS: guaiFENesin 100 mg/5 ml Syrup UD PO PRN (09:10)
--- NOTE | 2018-10-15 12:50 | PN ---
DATE: 10/15/2018 REASON FOR CONSULTATION: Acute CVA, status post thrombolytics, history of atrial fibrillation, history of pacemaker, status post MV repair in the past. SUBJECTIVE: The patient denied any chest pain, shortness of breath or any palpitations, not in apparent distress. The patient's family, son and daughter is at the bedside. PHYSICAL EXAMINATION: VITAL SIGNS: Temperature afebrile, heart rate 60, blood pressure 103/96. HEENT: PERRLA. Extraocular muscles intact. NECK: Supple. No carotid bruits or thyromegaly. CHEST: Clear to auscultation. HEART: S1 and S2 regular. ABDOMEN: Soft. EXTREMITIES: Clubbing and cyanosis negative. LABORATORY DATA: Blood workup: WBC 9.8, hemoglobin 13, hematocrit 40.4, platelet count 323. Chemistry showed sodium 141, potassium 4.5, chloride 108, carbon dioxide 28, anion gap of 9, BUN 24, creatinine 0.8, total protein 6.5, albumin 3.2, albumin-globulin ratio 1, total triglycerides 164, cholesterol 132, LDL 67, HDL 41, TSH 1.07. Lab is from yesterday. Today's lab is not available. IMPRESSION AND PLAN: An 88-year-old female with past medical history significant for severe mitral regurgitation, status post mitral valve repair with Elliott-Daphney ring with disease as moderate to severe, history of atrial fibrillation, admitted with acute cerebrovascular accident, status post thrombolysed. The patient is on Eliquis. Family is very much concerned about the bleeding. Risks, benefits, and alternatives discussed with the patient's family and son, and aspirin was discontinued. Continue atorvastatin. Continue amlodipine. Continue rehab physical therapy. Possible discharge to the rehab facility for post CVA rehab. Thank you Dr. Rutherford for providing us the opportunity in taking care of your patient, Sayda Ramirez. Raul Berry MD cc: Chang Rutherford MD
--- NOTE | 2018-10-15 13:43 | CP.PCM.PN ---
Objective - Vital Signs/Intake and Output Vital Signs (last 24 hours): Temp Pulse Resp BP Pulse Ox 98.1 F 60 19 93/54 L 94 L 10/15/18 06:00 10/15/18 10:00 10/15/18 06:00 10/15/18 09:12 10/15/18 06:00 Intake and Output: 10/15/18 10/15/18 06:59 18:59 Intake Total 1524 Balance 1524 - Medications Medications: Current Medications Amlodipine Besylate (Norvasc) 5 mg PO DAILY [facility] Last Admin: 10/15/18 09:12 Dose: Not Given Apixaban (Eliquis) 2.5 mg PO BID [facility]; Protocol Last Admin: 10/15/18 09:10 Dose: 2.5 mg Atorvastatin Calcium (Lipitor) 40 mg PO DIN [facility] Last Admin: 10/14/18 17:32 Dose: 40 mg Guaifenesin (Robitussin) 100 mg PO Q4H PRN PRN Reason: Cough Last Admin: 10/15/18 09:10 Dose: 100 mg Pantoprazole Sodium (Protonix Ec Tab) 40 mg PO ACB [facility] Last Admin: 10/15/18 09:10 Dose: 40 mg Sertraline HCl (Zoloft) 100 mg PO DAILY [facility] Last Admin: 10/15/18 09:10 Dose: 100 mg - Labs Labs: 10/14/18 06:50 10/14/18 06:50 PT 12.0 SECONDS (9.4-12.5) 10/09/18 22:27 INR 1.08 10/09/18 22:27 APTT 27.9 Seconds (26.9-38.3) 10/09/18 22:27 Assessment and Plan - Assessment and Plan (Free Text) Assessment: Ischemic stroke likely due to embolic etiology considering the history of atrial fibrillation and mitral valve replacement. Plan: Ischemic Stroke -improving -PT/OT eval and treatment -Lipitor 40 mg daily -Carotid US negative -Case management consult -continue to monitor mental status
--- NOTE | 2018-10-16 02:26 | DS ---
HISTORY OF PRESENT ILLNESS: The patient is an 88-year-old, seen and examined, sitting in chair, and looks much more comfortable. According to daughter, she has been sleeping a lot. Her speech is normal. PHYSICAL EXAMINATION: VITAL SIGNS: She is afebrile, pulse 60, respirations 19, and blood pressure 103/96. LUNGS: Bilateral fair airflow. No rhonchi or crackle. HEART: S1 and S2 audible. ABDOMEN: Soft, nontender, and obese. No hepatosplenomegaly. NEUROLOGIC: The patient is awake, alert and able to communicate. EXTREMITIES: Bilateral legs, no edema. LABORATORY DATA: EKG shows ventricular paced rhythm. Otherwise, her laboratory exam, there is no lab for today. ASSESSMENT: 1. Status post dysphagia. 2. Status post cerebrovascular accident. 3. History of mitral valve replacement. 4. Status post pacemaker placement. 5. History of hypertension. 6. Deconditioning and difficulty walking. PLAN: We will discontinue her nebulizer treatment. Started on Eliquis, started on Lipitor 40 daily, aspirin 81 daily, amlodipine 5 mg daily, Protonix 40 daily and she will continue Zoloft. She is being transferred to [place] today for further rehab. Chang Rutherford MD
[2018-10-16 07:03] VITALS: O2SAT 95
[2018-10-16] MEDS: Pantoprazole 40 mg EC Tab PO SCH (09:00)
--- NOTE | 2018-10-16 11:59 | PN ---
DATE: 10/16/2018 REASON FOR CONSULTATION: Followup acute CVA, status post thrombolytics, history of atrial fibrillation, history of pacemaker, status post MV repair in the past. SUBJECTIVE: The patient denies any chest pain, shortness of breath or any palpitation. Family is at the bedside. OBJECTIVE: GENERAL: Not in apparent distress. The patient wanted to go home. VITAL SIGNS: Temperature afebrile. Heart rate 61, blood pressure 105/65. HEENT: PERRLA. Extraocular muscles intact. NECK: Supple. No carotid bruits or thyromegaly. CHEST: Clear to auscultation. HEART: S1, S2. Regular. ABDOMEN: Soft. EXTREMITIES: Clubbing, cyanosis negative. LABORATORY DATA: Blood workup as follows: WBC 9.8, hemoglobin 13, hematocrit 40.4, platelet count 323. Chemistry showed sodium 141, potassium 4.1, chloride 108, carbon dioxide 28, anion gap 9, BUN 24, creatinine 0.8. The patient had a repeat echocardiography done on this admission with the bubble study. Did not show any ASD of PFO, preserved LV function, ejection fraction 55% to 60%, trace aortic regurgitation, trace mitral regurgitation, [id number] mitral valve stenosis, valve area 130 m2, , status post MV repair, EC ring, moderate tricuspid regurgiation, RV systolic pressure 42. IMPRESSION: An 88-year-old female with past medical history significant for severe mitral regurgitation, status post mitral valve repair, Elliott-Daphney ring, [id number] re-stenosis of the repair valve, history of atrial fibrillation with acute cerebrovascular accident, status post thrombolytics tPA. The patient is receiving liquids and the cardiac rehab. The patient is on Eliquis, amlodipine, and atorvastatin. Aspirin was discontinued because of the age and high risk of bleeding post tPA. RECOMMENDATIONS: Continue Eliquis, continue amlodipine, continue atorvastatin. Discussed with the family. Family wants to take home. Does not want to be sent to the rehab because the patient is positive and does not want to go the rehab, wants to go home. I advised the patient's son and the daughter to discuss the correctional case manager so home healthcare can be provided. Once the arrangement has been made, the patient will be discharged home. CVS status stable. Thank you Dr. Rutherford for providing us the opportunity in taking care of patient. Raul Berry MD
[2018-10-16 12:50] VITALS: RESP 20
[2018-10-16 17:40] VITALS: BP 117/79; PULSE 98; TEMP 98.5
--- NOTE | 2018-10-17 04:25 | DS ---
HISTORY OF PRESENT ILLNESS: The patient is an 88-year-old, seen and examined. Sitting in chair. According to daughter, she is eating okay and sleeping well. No weakness noted. Her swallowing is okay and her speech seem to be okay. Upon arrival in emergency room, she was found to have slurred speech. She was given TPA, and admitted in ICU, has been getting physical therapy, doing very well. PHYSICAL EXAMINATION: GENERAL: She is awake, alert, oriented and communicative. VITAL SIGNS: She is afebrile. Pulse 70, respirations 20 and blood pressure 118/64. LUNGS: Bilateral fair airflow. No rhonchi or crackle. HEART: S1 and S2, audible. ABDOMEN: Soft and nontender. No rebound. No guarding. NEUROLOGIC: The patient is awake, alert and able to communicate. ASSESSMENT: 1. Status post dysphagia, dysarthria that has resolved, status post TPA. 2. Mitral stenosis, status post mitral valve repair. 3. History of depression. 4. Status post pacemaker placement. 5. History of paroxysmal atrial fibrillation. PLAN: She was scheduled to go to [place], but family want to stay with her overnight, they are afraid that at night she might get confused, she might get out of bed or fall and get into bigger trouble, for that reason they decline going to rehab and she will take her home and we will get physical therapy at home. So, the patient will discharge home with the arrangement of home PT. Chang Rutherford MD
== END 2018-10-16 20:28 | disposition home health service (06) | DRG 63 ==
LOC: ED 21:48 → ERH 23:14 → CCU 10-10 00:47 → 2RNO 10-13 12:54
PROVIDERS: ADMIT Internal Medicine; ATTEND Internal Medicine
DX: I63.40 Cerebral infarction due to embolism of unspecified cerebral artery (principal); I48.0 Paroxysmal atrial fibrillation; I10 Essential (primary) hypertension; R13.10 Dysphagia, unspecified; R29.810 Facial weakness; R47.01 Aphasia; R29.708 NIHSS score 8; E78.5 Hyperlipidemia, unspecified; I65.02 Occlusion and stenosis of left vertebral artery; R47.1 Dysarthria and anarthria; I27.20 Pulmonary hypertension, unspecified; F32.9 Major depressive disorder, single episode, unspecified; F41.9 Anxiety disorder, unspecified; I34.0 Nonrheumatic mitral (valve) insufficiency; Z95.2 Presence of prosthetic heart valve; E66.9 Obesity, unspecified; Z68.32 Body mass index [BMI] 32.0-32.9, adult; Z79.82 Long term (current) use of aspirin; Z95.0 Presence of cardiac pacemaker